=== PATIENT | male | born 1945 | race Caucasian/White ===

== ENCOUNTER 2016-06-20 16:28 | Inpatient (IN) ==
[2016-06-20 17:43] LABS: INR 1.1; Prothrombin Time 12.4 Seconds (9.4-12.1)
[2016-06-20 17:46] LABS: Activated Partial Thrombo Time 19.6 Seconds (26.0-36.0)
[2016-06-20 17:49] LABS: Alanine Aminotransferase 27 Units/L (0-55); Albumin 4.3 g/dL (3.5-5.0); Albumin/Globulin Ratio 1.5 (1.1-2.2); Alkaline Phosphatase 79 Units/L (38-126); Aspartate Amino Transferase 22 Units/L (5-34); BUN/Creatinine Ratio 13 (6-26); Bilirubin,Direct 0.2 mg/dL (0.0-0.5); Bilirubin,Indirect 0.5 mg/dL (0.0-1.2); Bilirubin,Total 0.7 mg/dL (0.2-1.2); Blood Urea Nitrogen 14 mg/dL (8-26); Carbon Dioxide 22 mEq/L (19-29); Chloride 102 mEq/L (98-109); Creatine Kinase 109 Units/L (30-200); Globulin 2.8 g/dL (2.4-3.5); Glucose 284 mg/dL (70-99); Osmolality,Calculated 297 (280-300); Potassium 3.6 mEq/L (3.5-4.5); Sodium 138 mEq/L (136-145); Total Protein 7.1 g/dL (6.0-8.3); eGFR For African Americans > 60 (> 60); eGFR For Non-African Americans > 60 (> 60)
[2016-06-20 20:18] LABS: Beta-Hydroxybutyric Acid 0.93 mmol/L (0.02-0.27)
[2016-06-20 20:27] LABS: Hematocrit 38.6 % (37.5-50.1); Hemoglobin 13.5 g/dL (12.9-16.9); Lymphocytes # 0.8 K/mcL (0.6-4.6); Mean Corpuscular Hemoglobin 28.5 pg (28.0-33.3); Mean Corpuscular Volume 81.6 fL (83.0-100.0); Mean Platelet Volume 10.9 fL (9.4-12.4); Monocytes # 0.1 K/mcL (0.0-1.3); Neutrophils # 0.9 K/mcL (1.6-8.9); Platelet Count 127 K/mcL (140-400); Red Blood Count 4.73 M/mcL (4.19-5.50); Red Cell Distribution Width 13.2 % (11.5-14.5)
[2016-06-20 20:27] LABS: Salicylate 7.2 mg/dL (15-30)
[2016-06-20 20:28] LABS: Acetaminophen < 1.0 mcg/mL (10-30)
[2016-06-20 20:47] LABS: Thyroid Stimulating Hormone 1.266 mcIU/mL (0.350-4.840)
[2016-06-20 20:48] LABS: C-Reactive Protein 0 mg/L (Less than 5)
[2016-06-20 20:50] LABS: Basophils # 0.1 K/mcL (0.0-0.2)
[2016-06-20 20:51] LABS: Platelet Estimate Slight Decrease (Normal); Reactive Lymphocytes Present (Not Present)
[2016-06-21 00:33] LABS: Amphetamine Screen,Urine Negative ng/mL (Cutoff=1000); Barbiturate Screen,Urine Negative ng/mL (Cutoff=200); Benzodiazepines Screen,Urine Negative ng/mL (Cutoff=200); Cannabinoid Screen,Urine Negative ng/mL (Cutoff = 50); Cocaine Screen,Urine Negative ng/mL (Cutoff= 300); Opiate Screen,Urine Negative ng/mL (Cutoff=300); Phencyclidine Screen,Urine Negative ng/mL (Cutoff=25)
[2016-06-21 02:10] LABS: 2009 H1N1 PCR NOT DETECTED (Not Detect); Influenza A PCR Negative (Negative); Influenza B PCR Negative (Negative)
[2016-06-21 06:36] LABS: Basophils % 0.9 %; Eosinophils # 0.1 K/mcL (0.0-0.6); Eosinophils % 2.2 %; Hemoglobin 13.3 g/dL (12.9-16.9); Immature Granulocytes % 0.4 % (0-4); Lymphocytes # 1.3 K/mcL (0.6-4.6); Mean Corpuscular HGB Conc 34.1 g/dL (31.6-35.5); Mean Corpuscular Hemoglobin 27.9 pg (28.0-33.3); Mean Corpuscular Volume 81.8 fL (83.0-100.0); Monocytes # 0.1 K/mcL (0.0-1.3); Monocytes % 6.1 %; Neutrophils # 0.8 K/mcL (1.6-8.9); Platelet Count 129 K/mcL (140-400); Red Blood Count 4.77 M/mcL (4.19-5.50); Red Cell Distribution Width 13.2 % (11.5-14.5); Segmented Neutrophils % 35.4 %
[2016-06-21 06:50] LABS: Alanine Aminotransferase 25 Units/L (0-55); Albumin 3.7 g/dL (3.5-5.0); Albumin/Globulin Ratio 1.5 (1.1-2.2); Alkaline Phosphatase 62 Units/L (38-126); Aspartate Amino Transferase 18 Units/L (5-34); BUN/Creatinine Ratio 11 (6-26); Bilirubin,Total 0.9 mg/dL (0.2-1.2); Blood Urea Nitrogen 10 mg/dL (8-26); Calcium 8.6 mg/dL (8.6-10.8); Carbon Dioxide 24 mEq/L (19-29); Chloride 103 mEq/L (98-109); Globulin 2.4 g/dL (2.4-3.5); Glucose 213 mg/dL (70-99); Magnesium 1.6 mg/dL (1.6-2.6); Osmolality,Calculated 291 (280-300); Potassium 3.3 mEq/L (3.5-4.5); Sodium 138 mEq/L (136-145); Total Protein 6.1 g/dL (6.0-8.3); eGFR For African Americans > 60 (> 60); eGFR For Non-African Americans > 60 (> 60)
[2016-06-22 06:11] LABS: Eosinophils # 0.1 K/mcL (0.0-0.6); Eosinophils % 3.4 %; Hematocrit 34.8 % (37.5-50.1); Hemoglobin 11.9 g/dL (12.9-16.9); Immature Granulocytes % 0.5 % (0-4); Lymphocytes % 47.5 %; Mean Corpuscular HGB Conc 34.2 g/dL (31.6-35.5); Mean Corpuscular Volume 81.9 fL (83.0-100.0); Mean Platelet Volume 11.4 fL (9.4-12.4); Monocytes # 0.1 K/mcL (0.0-1.3); Monocytes % 3.4 %; Neutrophils # 0.9 K/mcL (1.6-8.9); Platelet Count 114 K/mcL (140-400); Red Blood Count 4.25 M/mcL (4.19-5.50); Red Cell Distribution Width 13.2 % (11.5-14.5); Segmented Neutrophils % 44.2 %
[2016-06-22 06:26] LABS: BUN/Creatinine Ratio 14 (6-26); Blood Urea Nitrogen 12 mg/dL (8-26); Calcium 8.2 mg/dL (8.6-10.8); Carbon Dioxide 25 mEq/L (19-29); Chloride 108 mEq/L (98-109); Glucose 189 mg/dL (70-99); Osmolality,Calculated 289 (280-300); Sodium 137 mEq/L (136-145); eGFR For African Americans > 60 (> 60); eGFR For Non-African Americans > 60 (> 60)
[2016-06-22 11:34] LABS: Hemoglobin A1C 8.8 %
[2016-06-23 08:03] VITALS: BP 110/65
== END 2016-06-23 14:18 | disposition home health service (06) | DRG 190 ==
LOC: EMEROO 16:28 → 2NENU 16:28 → SUATTDRO 21:24 → 2NENU 22:40
PROVIDERS: ADMIT Internal Medicine; ATTEND Internal Medicine

== ENCOUNTER 2016-07-25 19:45 | Inpatient (IN) ==
[2016-07-25 20:37] LABS: Bilirubin,Urine Negative (Negative); Blood,Urine Small (Negative); Clarity,Urine Cloudy (Clear); Color,Urine Yellow (Yellow); Glucose,Urine (UA) >=1000 mg/dL (Normal); Ketones,Urine Negative (Negative); Leukocyte Esterase,Urine Moderate (Negative); Nitrite,Urine Negative (Negative); Protein,Urine Trace mg/dL (Neg-Trace); Specific Gravity,Urine > 1.030 (1.010-1.025); Urobilinogen,Urine Normal (Normal)
[2016-07-25 20:40] LABS: Bacteria,Urine None Seen per hpf (None-Few); Hyaline Casts,Urine None Seen per lpf (None-Few); Squamous Epithelial Cell,Urine Moderate per lpf (None-Few); WBC,Urine TNTC per hpf (0-3)
[2016-07-25] MEDS ORDERED: Insulin Human Regular 10 UNIT in 0.9 % Sodium Chloride 10 ML IV ONE (20:59)
--- NOTE | 2016-07-25 21:15 | Emergency Department Note ---
Disposition Clinical Impression: HHNC (hyperglycemic hyperosmolar nonketotic coma), Malaise and fatigue, Hyponatremia, Acute kidney injury UTI (urinary tract infection) Qualifiers: Urinary tract infection type: site unspecified Hematuria presence: with hematuria Qualified Code(s): N39.0 - Urinary tract infection, site not specified ; R31.9 - Hematuria, unspecified Disposition: Admitted As Inpatient Condition: Fair Referrals: NO,PCP [Non-Partnered Physician] - Forms: ED Satisfaction Letter Time of Disposition: 23:55 General Adult HPI - General Chief complaint: ED Neuro Symptoms/Deficit Stated complaint: hyperglycemia, slurred speech Time Seen by Provider: 07/25/16 20:24 Source: family Limitations: no limitations Nursing Notes Reviewed: Yes Vital Signs Reviewed: Yes - History of Present Illness HPI Narrative: 70-year-old male with past medical history for COPD,, 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 Patient undergone continued antibiotic therapy for UTI past 3-4 weeks presents with worsening fatigue and weakness over the past 2 weeks and has worsened over the past 3 days. Patient reports falling secondary to weakness. Onset (ago): week(s) Pain Scale: 7 Consistency: constant - Related Data Home Medications Medication Instructions Recorded Confirmed Albuterol Sulfate [Proventil] 4 mg PO BID 06/20/16 06/20/16 Insulin Lispro Protamin/Lispro 30 unit SQ BID 06/20/16 06/20/16 [Humalog Mix 75-25 Vial] Metformin HCl [Glucophage] 1,000 mg PO BID 06/20/16 06/20/16 Polyethylene Glycol 3350 [MiraLAX 1 scoop PO DAILY PRN 06/20/16 06/20/16 Powder Bulk 17.9 Oz] Simvastatin [Zocor] 40 mg PO HS 06/20/16 06/20/16 Tramadol HCl [Ultram] 50 mg PO Q4-6H PRN 06/20/16 06/20/16 Previous Rx's Medication Instructions Recorded Levofloxacin [Levaquin] 500 mg PO DAILY #5 tablet 06/23/16 Allergies Allergy/AdvReac Type Severity Reaction Status Date / Time loratadine [From Claritin] AdvReac Gastrointestinal Verified 06/20/16 16:46 Upset All systems ED: reviewed and negative except as stated. Constitutional: Reports: weakness. Denies: fever, chills ENT ED: Reports: congestion Cardiovascular: Reports: chest pain Respiratory: Reports: cough, dyspnea, wheezes Gastrointestinal: Reports: nausea. Denies: abdominal pain, vomiting, diarrhea Past Medical History - Past Medical History Attestation: Yes The following information was validated with the patient. Source: patient Medical history: Reports: COPD, CVA, diabetes, hyperlipidemia Surgical history: Reports: cholecystectomy, herniorrhaphy Psychiatric history: Reports: depression - Social History Smoking Status: Never smoker Smokeless Tobacco Status: No Alcohol use: Reports: none Drug use: Reports: none Physical Exam Vital Signs Temperature 99.2 F 07/25/16 19:51 Pulse Rate 92 07/25/16 19:51 Respiratory Rate 18 07/25/16 19:51 Blood Pressure 137/91 07/25/16 19:51 O2 Sat by Pulse Oximetry 95 07/25/16 19:51 Temperature 99.2 F 07/25/16 19:51 Pulse Rate 92 07/25/16 19:51 Respiratory Rate 18 07/25/16 19:51 Blood Pressure 137/91 07/25/16 19:51 O2 Sat by Pulse Oximetry 95 07/25/16 19:51 Oxygen Delivery Oxygen Delivery Room Air -General Appearance: Patient is a 70-year-old male who is alert and oriented 3 and GCS of 15's Jacques been to bed.. -Neurological exam: Patient has known left-sided weakness to right side of the body could offer and lower extremities secondary to prior CVA, no new deficits - Head Head exam: atraumatic, normocephalic, normal inspection - Eye Eye exam: Present: normal appearance, PERRL, EOMI, negative for scleral icterus negative for conjunctival pallor - ENT ENT exam: normal exam, normal oropharynx, mucous membranes moist - Neck Neck exam: Present: normal inspection, full ROM, trachea midline, negative JVD - Chest Chest inspection: Present: Patient has bilateral equal rise and fall of chest wall. Non-tender to palpation. - Respiratory Respiratory exam: Lungs sounds clear to auscultation bilaterally Cardiovascular Cardiovascular exam: Present: regular rate, normal rhythm, normal heart sounds, without murmurs rubs or gallops. - Abdominal Exam Abdominal exam: Round nondistended, generalized tenderness to palpation. - Extremities Exam Extremities exam: Present: normal inspection, full ROM, pulses equal bilaterally upper and lower extremities - Psychiatric Psychiatric exam: Present: normal affect, normal mood - Skin Skin exam: Present: warm, dry, intact, normal color - General Limitations: no limitations General appearance: alert Course - Reevaluation(s) Reevaluation #1: His condition concerning for presyncope secondary to possible DKA/HHS, pyelonephritis, CHF, CVA Plan: CBC, BMP, lactate, beta hydroxybutyric acid, Lactic acid, troponin, chest x-ray, EKG and blood cultures Time: 20:59 Reevaluation #2: IVs and labs in progress Time: 22:41 Reevaluation #3: Patient's glucose is 524 concerning for a GCS with the absence of elevated hydroxybutyrate. Acid or elevated lactic acid or an opening of the anion gap. Patient does have an acute kidney injury with a creatinine of 1.4 degrees well. Patient started on IV hydration and antibiotic therapy to cover for systemic infection. Patient is accepted for admission by Dr. Edwards Vital Signs Temperature 99.2 F 07/25/16 19:51 Pulse Rate 92 07/25/16 19:51 Respiratory Rate 18 07/25/16 19:51 Blood Pressure 137/91 07/25/16 19:51 O2 Sat by Pulse Oximetry 95 07/25/16 19:51 Temperature 99.2 F 07/25/16 19:51 Pulse Rate 92 07/25/16 19:51 Respiratory Rate 18 07/25/16 19:51 Blood Pressure 137/91 07/25/16 19:51 O2 Sat by Pulse Oximetry 95 07/25/16 19:51 Oxygen Delivery Oxygen Delivery Room Air Medical Decision Making - Lab Data Lab Results 07/25/16 Range/Units 20:11 Urine Color Yellow (Yellow) Urine Clarity Cloudy A (Clear) Urine pH 7.0 (5.0-8.0) pH Units Ur Specific [place] > 1.030 H (1.010-1.025) Urine Protein Trace (Neg-Trace) mg/dL Urine Glucose (UA) >=1000 H (Normal) mg/dL Urine Ketones Negative (Negative) mg/dL Urine Blood Small H (Negative) Urine Nitrite Negative (Negative) Urine Bilirubin Negative (Negative) Urine Urobilinogen Normal (Normal) mg/dL Ur Leukocyte Esterase Moderate H (Negative) Urine Microscopic RBC 5-15 H (0-3) per hpf Urine Microscopic WBC TNTC H (0-3) per hpf Ur Squamous Epith Cells Moderate H (None-Few) per lpf Urine Bacteria None Seen (None-Few) per hpf Hyaline Casts None Seen (None-Few) per lpf Urine Yeast Test Not Performed Ur Culture Indicated? YES A (NO)
[2016-07-25 21:32] LABS: Basophils # 0.1 K/mcL (0.0-0.2); Basophils % 1.4 %; Eosinophils # 0.1 K/mcL (0.0-0.6); Eosinophils % 3.6 %; Hematocrit 41.1 % (37.5-50.1); Hemoglobin 14.7 g/dL (12.9-16.9); Immature Granulocytes % 0.6 % (0-4); Lymphocytes # 1.1 K/mcL (0.6-4.6); Lymphocytes % 30.1 %; Mean Corpuscular HGB Conc 35.8 g/dL (31.6-35.5); Mean Corpuscular Hemoglobin 28.9 pg (28.0-33.3); Mean Corpuscular Volume 80.9 fL (83.0-100.0); Mean Platelet Volume 11.3 fL (9.4-12.4); Monocytes # 0.1 K/mcL (0.0-1.3); Monocytes % 3.3 %; Neutrophils # 2.2 K/mcL (1.6-8.9); Platelet Count 149 K/mcL (140-400); Red Blood Count 5.08 M/mcL (4.19-5.50)
--- NOTE | 2016-07-25 21:37 | Emergency Department Note ---
START Narrative - START START: I, Rowdy Costa, examined this patient and my medical decision-making was reviewed with the DIRECTOR OF SOCIAL MEDIA MARKETING/PA/Advanced Practice Nurse/Resident Physician. I agree with the documented findings, disposition and treatment plan as described except to the extent set forth below. 70-year-old male presents with concerns of hyperglycemia. Director Of Social Media Marketing states the patient has been treated for urinary tract infection over the past 2 weeks, taking levofloxacin at home. Patient states that he has back pain similar to when he had urinary tract infections in the past. Patient was incontinent of urine in the emergency department during initial evaluation. Patient states that he has had dysuria and increased frequency of urination. He has had multiple urinary tract infections with similar symptoms. Patient's blood sugar was greater than 600 at home. He took 30 units of insulin prior to arrival to the emergency department. Patient slid out of bed earlier this morning but denies hitting his head or having other trauma. Director Of Social Media Marketing states that the patient has an increased slurred speech today. He reports the patient has baseline slurred speech secondary to a CVA and that he does tend to have worsened speech when he becomes sick. She has a urinary tract infection with urinalysis.
[2016-07-25 21:40] LABS: INR 0.9
[2016-07-25 21:42] LABS: Potassium 3.7 mEq/L (3.5-4.5)
[2016-07-25] MEDS ORDERED: Piperacillin/Tazobactam 3.375 GM in D5% in Water (Mini-Bag+) 100 ML IVPB ONE (21:52)
[2016-07-25] MEDS ORDERED: Insulin LISPRO 300 UNITS/3 ML VIAL SQ ONE (22:45)
[2016-07-25] MEDS ORDERED: Insulin Regular, Human 100 UNIT/ML SQ ONE (23:00)
[2016-07-25] MEDS ORDERED: *HR* HYDROmorphone 2 MG/ML SYRINGE IV ONE (23:44)
[2016-07-26] MEDS: 0.9 % Sodium Chloride 1,000 ML IVC SCH ×7 (00:17→17:13)
--- NOTE | 2016-07-26 03:08 | Internal Med History&Physical ---
Date of Encounter: 07/26/16 Time of Encounter: 03:06 Assessment and Plan (1) UTI (urinary tract infection) Current visit: Yes Status: Acute Patient with a urinary tract infection which failed outpatient therapy with quinolones. Continue with Zosyn, reassess with cultures. Patient with leukopenia (which has been present in the past) and acute kidney injury secondary to infection. He has been tachycardic at some point, however his blood pressure has been stable. Follow lactic acid, continue with IV fluids. Monitor input and output. Qualifiers: Urinary tract infection type: site unspecified Hematuria presence: with hematuria Qualified Code(s): N39.0 - Urinary tract infection, site not specified; R31.9 - Hematuria, unspecified (2) Acute kidney injury Current visit: Yes Status: Acute Continue with IV fluid therapy. Anion gap 15. Lactic acid 2.2. (3) Diabetes Current visit: No Status: Chronic Uncontrolled diabetes with hyperglycemia. Anion gap 15. Continue with IV fluids. Insulin therapy. Check A1c. Accu-Cheks. 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 Continue with IV antibiotics. Qualifiers: Leukopenia type: unspecified Qualified Code(s): D72.819 - Decreased white blood cell count, unspecified (5) Cerebrovascular disease Current visit: No Status: Chronic Resume home meds. (6) DVT prophylaxis Current visit: No Status: Acute Heparin sq. Internal Medicine - H&P: HPI Chief complaint: Weakness Admitted From: Emergency Dept Plans for Post Hospital Care: Home History of present illness: Mr. Correa is a 71 year old male with a medical history of CVA, hypertension, UTI. Patient presented to our emergency department due to progressive weakness , he has been taking therapy for a UTI with levofloxacin. Patient denies fever , chest pain, he complains of cough and some shortness of breath, however he admits to history of COPD although he is not a smoker. Patient denies loss of consciousness, syncope, skin rash, diarrhea. He was found to have a glucose level over 500 and an abnormal urinalysis with too numerous to count leukocytes in the urine. The patient was admitted for further management and workup of his UTI. He was given a dose of Zosyn in the emergency department. Today is his birthday. Past Med Surg Social Fam HX - Past Medical History Medical history: COPD, CVA, diabetes, hyperlipidemia Psychiatric history: depression - Past Surgical History Surgical History: cholecystectomy, herniorrhaphy, other - Social History Smoking Status: Never smoker Smokeless Tobacco Status: No Alcohol use: none Drug use: none - Family History Mother Living Status: Hx Family Cancer: Yes (lung cANCER) Internal Medicine - H&P: Meds Albuterol Sulfate [Proventil] 4 mg PO BID 06/20/16 [History] Insulin Lispro Protamin/Lispro [Humalog Mix 75-25 Vial] 30 unit SQ BID 06/20/16 [History] Metformin HCl [Glucophage] 1,000 mg PO BID 06/20/16 [History] Polyethylene Glycol 3350 [MiraLAX Powder Bulk 17.9 Oz] 1 scoop PO DAILY PRN [History] Simvastatin [Zocor] 40 mg PO HS 06/20/16 [History] Tramadol HCl [Ultram] 50 mg PO Q4-6H PRN 06/20/16 [History] Levofloxacin [Levaquin] 500 mg PO DAILY #5 tablet 06/23/16 [Rx] Allergies loratadine [From Claritin] Adverse Reaction (Verified 06/20/16 16:46) Gastrointestinal Upset All Systems PM: A 10-system review of systems was performed and is negative for pertinent findings except as documented above in the HPI. - Constitutional Constitutional: as per HPI, anorexia, fatigue, lethargy - EENT Eyes: as per HPI Ears: as per HPI Nose, mouth and throat: as per HPI - Breasts Breasts: as per HPI - Cardiovascular Cardiovascular ROS IM: as per HPI - Respiratory Respiratory: as per HPI, dyspnea on exertion - Gastrointestinal Gastrointestinal: as per HPI - Genitourinary Genitourinary ROS male: as per HPI - Musculoskeletal Musculoskeletal ROS IM: as per HPI - Integumentary Integumentary IM: as per HPI - Neurological Neurological ROS: as per HPI - Psychiatric Psychiatric: as per HPI - Endocrine Endocrine IM: as per HPI - Hematologic/Lymphatic Hematologic/Lymphatic: as per HPI - Allergic/Immunologic Allergic/Immunologic: as per HPI - Constitutional Vitals: Temp Pulse Resp BP Pulse Ox 98.1 F 96 14 119/79 95 07/26/16 01:31 07/26/16 01:31 07/26/16 01:31 07/26/16 01:31 07/26/16 02:09 General appearance: Present: cooperative, A&O X 3, pleasant, no acute distress Exam: Right-sided hemiparesis. - Head Head exam: Present: atraumatic, normocephalic - Eye Eye exam: Present: PERRL, conjuntiva pink, sclera anicteric Pupils: Present: PERRL - Neck Neck exam general surgery: Present: supple, trachea midline. Absent: lymphadenopathy - Respiratory Respiratory exam: Present: CTAB. Absent: accessory muscle use, rales, rhonchi, wheezes - Cardiovascular Cardiovascular exam: Present: RRR, +S1, +S2. Absent: diastolic murmur, gallop, rubs, systolic murmur - GI/Abdominal GI/Abdominal exam: Present: normal bowel sounds, soft, no peritoneal signs. Absent: distended, tenderness - Extremities Exam Extremities exam: Present: warm, radial pulses palpable and symetrical. Absent : calf tenderness, cyanotic, pedal edema - Neurological Exam Neurological exam: Present: CN II-XII intact, oriented X3, no focal deficits. Absent: pronater drift, facial droop, speech deficit - Skin Skin exam: Present: dry, intact Internal Med - H&P Results - Labs CBC & Chem 7: 07/25/16 21:21 07/25/16 21:21
[2016-07-26] MEDS ORDERED: Naloxone 0.4 MG/ML INJ IVP PRN (03:19)
[2016-07-26] MEDS ORDERED: *HR* Dextrose 50 % in Water (Syg) 50 ML SYRINGE IVP PRN (03:19)
[2016-07-26] MEDS ORDERED: D5% in Water 1,000 ML IVC PRN (03:19)
[2016-07-26] MEDS ORDERED: *HR* Morphine 2 MG/ML SYRINGE IVP PRN (03:19)
[2016-07-26] MEDS ORDERED: Dextrose Gel 15 GM PO PRN ×2 (03:19)
[2016-07-26] MEDS ORDERED: Acetaminophen 325 MG TABLET PO PRN (03:19)
[2016-07-26] MEDS ORDERED: Ondansetron 4 MG/2 ML VIAL IVP PRN ×2 (03:19→17:23)
[2016-07-26 05:06] LABS: Basophils % 0.9 %; Eosinophils # 0.2 K/mcL (0.0-0.6); Eosinophils % 4.1 %; Hematocrit 34.7 % (37.5-50.1); Lymphocytes # 1.4 K/mcL (0.6-4.6); Lymphocytes % 32.6 %; Mean Corpuscular HGB Conc 36.6 g/dL (31.6-35.5); Mean Corpuscular Hemoglobin 30.1 pg (28.0-33.3); Mean Corpuscular Volume 82.2 fL (83.0-100.0); Mean Platelet Volume 11.4 fL (9.4-12.4); Monocytes # 0.2 K/mcL (0.0-1.3); Monocytes % 4.1 %; Neutrophils # 2.6 K/mcL (1.6-8.9); Platelet Count 121 K/mcL (140-400); Red Blood Count 4.22 M/mcL (4.19-5.50); Red Cell Distribution Width 13.1 % (11.5-14.5); Segmented Neutrophils % 58.3 %
[2016-07-26 05:09] LABS: Hemoglobin 12.7 g/dL (12.9-16.9)
[2016-07-26] MEDS: *HR* Heparin 5,000 UNIT/ML VIAL SQ SCH ×2 (05:16→17:14)
[2016-07-26] MEDS: *HR* HYDROcodone/Acet 5/325 mg TABLET PO PRN ×2 (05:17→17:10)
[2016-07-26] MEDS: Famotidine 20 MG/2 ML VIAL IVP SCH ×2 (05:17→17:14)
[2016-07-26 05:22] LABS: Hemoglobin A1C 11.3 %
[2016-07-26 05:23] LABS: Alanine Aminotransferase 19 Units/L (0-55); Albumin 3.6 g/dL (3.5-5.0); Albumin/Globulin Ratio 1.6 (1.1-2.2); Alkaline Phosphatase 88 Units/L (38-126); Aspartate Amino Transferase 12 Units/L (5-34); BUN/Creatinine Ratio 10 (6-26); Bilirubin,Total 0.5 mg/dL (0.2-1.2); Blood Urea Nitrogen 12 mg/dL (8-26); Calcium 8.7 mg/dL (8.6-10.8); Carbon Dioxide 25 mEq/L (19-29); Chloride 98 mEq/L (98-109); Chol/HDL Ratio 3.9 (0-4.9); Cholesterol 151 mg/dL (< 200); Globulin 2.2 g/dL (2.4-3.5); Glucose 418 mg/dL (70-99); HDL Cholesterol 39 mg/dL (40-59); LDL Cholesterol,Calculated 73 mg/dL (0-99); Magnesium 1.6 mg/dL (1.6-2.6); Osmolality,Calculated 300 (280-300); Potassium 3.1 mEq/L (3.5-4.5); Sodium 136 mEq/L (136-145); Total Protein 5.8 g/dL (6.0-8.3); Triglycerides 197 mg/dL (< 150); eGFR For African Americans > 60 (> 60); eGFR For Non-African Americans 59 (> 60)
[2016-07-26] MEDS ORDERED: *HR* OxyCODONE/APAP 10/325 TABLET PO ONE (06:59)
[2016-07-26] MEDS: Insulin LISPRO 300 UNITS/3 ML VIAL SQ SCH ×4 (08:05→22:23)
[2016-07-26] MEDS: Piperacillin/Tazobactam 3.375 GM in D5% in Water (Mini-Bag+) 100 ML IVPB SCH ×3 (08:06→23:55)
--- NOTE | 2016-07-26 09:11 | Electrocardiograph Report ---
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
[2016-07-26] MEDS ORDERED: traMADol 50 MG TABLET PO PRN (17:18)
--- NOTE | 2016-07-26 17:22 | Event Note ---
Date of Encounter: 07/26/16 Time of Encounter: 10:30 Patient seen and examined. On examination, patient initially asleep and awaken easily to voice. He complains of pain in his back that is consistent with his chronic pain however he states the pain is slightly different from his normal. He states his weakness has improved. He states he is eating well. He states he is angry because his "Perc tens" have not been continued. His OARRS report checks out with one prescriber with current prescriptions for Percocet 10 mg, 5 per day and tramadol 50 mg 6 per day. We will continue these. Urinary tract infection noted. Patient failed outpatient therapy with levofloxacin. Continue Zosyn. Urine culture pending. Acute kidney injury resolved. No lactic acidosis noted. Hypokalemia noted, will replete and recheck tomorrow. His diabetes is not controlled with an A1c of 11.3%, continue sliding scale while admitted. OT and PT consultations are pending. Nutrition also on board. Chest x-ray unremarkable. Sliding scale increased. ITS Impressions Chest X-Ray 07/25/16 20:13 IMPRESSION: No acute cardiopulmonary disease. Unchanged right paratracheal mass, likely a bronchogenic cyst. D/ / Jax Abrams MD / Jax Abrams MD Interpreting Provider: Jax Abrams MD
[2016-07-26] MEDS: Insulin DETEMIR 100 UNIT/ML X5UNITS SQ SCH (20:03)
[2016-07-26] MEDS ORDERED: Insulin LISPRO 300 UNITS/3 ML VIAL SQ SCH (21:00)
[2016-07-27 04:50] LABS: Hematocrit 36.6 % (37.5-50.1); Hemoglobin 12.9 g/dL (12.9-16.9); Mean Corpuscular HGB Conc 35.2 g/dL (31.6-35.5); Mean Corpuscular Hemoglobin 29.1 pg (28.0-33.3); Mean Corpuscular Volume 82.4 fL (83.0-100.0); Neutrophils # 1.6 K/mcL (1.6-8.9); Platelet Count 103 K/mcL (140-400); Red Blood Count 4.44 M/mcL (4.19-5.50); Red Cell Distribution Width 13.2 % (11.5-14.5)
[2016-07-27 05:02] LABS: BUN/Creatinine Ratio 11 (6-26); Blood Urea Nitrogen 15 mg/dL (8-26); Calcium 8.5 mg/dL (8.6-10.8); Carbon Dioxide 21 mEq/L (19-29); Chloride 103 mEq/L (98-109); Glucose 274 mg/dL (70-99); Osmolality,Calculated 295 (280-300); Potassium 3.9 mEq/L (3.5-4.5); Sodium 137 mEq/L (136-145); eGFR For African Americans > 60 (> 60); eGFR For Non-African Americans 50 (> 60)
[2016-07-27 05:34] LABS: Eosinophils # 0.3 K/mcL (0.0-0.6); Monocytes # 0.2 K/mcL (0.0-1.3); Platelet Estimate Slight Decrease (Normal)
[2016-07-27] MEDS: Famotidine 20 MG/2 ML VIAL IVP SCH ×2 (06:21→16:59)
[2016-07-27] MEDS: *HR* Heparin 5,000 UNIT/ML VIAL SQ SCH ×2 (06:21→17:01)
[2016-07-27] MEDS: *HR* OxyCODONE/APAP 10/325 TABLET PO PRN ×3 (07:57→20:44)
[2016-07-27] MEDS: Insulin LISPRO 300 UNITS/3 ML VIAL SQ SCH ×4 (07:58→20:44)
[2016-07-27] MEDS: Piperacillin/Tazobactam 3.375 GM in D5% in Water (Mini-Bag+) 100 ML IVPB SCH ×2 (07:59→17:00)
[2016-07-27 10:53] LABS: Bilirubin,Urine Negative (Negative); Blood,Urine Large (Negative); Clarity,Urine Turbid (Clear); Color,Urine Yellow (Yellow); Glucose,Urine (UA) >=1000 mg/dL (Normal); Ketones,Urine Negative (Negative); Leukocyte Esterase,Urine Large (Negative); Nitrite,Urine Negative (Negative); PH,Urine 5.5 pH Units (5.0-8.0); Protein,Urine 100 mg/dL (Neg-Trace); Specific Gravity,Urine 1.024 (1.010-1.025); Urobilinogen,Urine Normal (Normal)
[2016-07-27 10:54] LABS: Bacteria,Urine None Seen per hpf (None-Few); Squamous Epithelial Cell,Urine Many per lpf (None-Few); WBC,Urine TNTC per hpf (0-3)
[2016-07-27 10:55] LABS: Hyaline Casts,Urine None Seen per lpf (None-Few)
--- NOTE | 2016-07-27 16:11 | Internal Med Progress Note ---
Date of Encounter: 07/27/16 Time of Encounter: 09:30 - Assessment and plan (1) UTI (urinary tract infection) Current Visit: Yes Status: Acute Assessment and plan: Urine culture mixed and unable to be interpreted. Given that he failed outpatient therapy with Levaquin, we will repeat a urinalysis and repeat the urine culture. He is tolerating Zosyn well. We will hopefully have a preliminary culture back tomorrow. Likely discharge once his urine culture has been resulted. Vital signs are stable. Patient does not meet criteria for SIRS or sepsis. Mild acute kidney injury, we will add gentle IV fluids. 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 When asked if he would be amenable to home health, patient stating that he has been trying to get home health for the past 6 months. He states several different reasons as to why he cannot have home health services. Some of his reasoning was difficult to follow. He mentioned that he has had issues before with there being 4 dogs inside the house and with fecal matter on the floor. He also stated issues with being discharged honorably discharged from the service. He also states issues with the dogs in the house though he states he keeps them locked in a back room where they "due to her business." In review of his chart, he and his are recently admitted and there was an attempt to place both of them that an ECF but it appears as if they have refused. It was noted that his was sitting in her fecal matter and was very unkempt. business services analyst has been brought on board. OT and PT recommended home health so we will need to investigate the issues preventing him and his from having services at home. Urine culture was mixed and as he failed outpatient therapy for his urinary tract infection, we are repeating a urinalysis so he would not be fit to go home today anyways. (3) Hypokalemia Current Visit: Yes Status: Resolved (4) Uncontrolled diabetes mellitus Current Visit: Yes Status: Chronic Assessment and plan: Uncontrolled with an A1c of 11.3%. Continue sliding scale while admitted. Qualifiers: Diabetes mellitus type: type 2 Diabetes mellitus complication status: with hyperglycemia Diabetes mellitus skilled nursing insulin use: with skilled nursing use Qualified Code(s): E11.65 - Type 2 diabetes mellitus with hyperglycemia; Z79.4 - watermaster (current) use of insulin (5) Hypertension Current Visit: Yes Status: Chronic Assessment and plan: Controlled. Patient is not listed as being on any antihypertensive medications at home, will monitor. (6) CVA, old, hemiparesis Current Visit: Yes Status: Chronic Assessment and plan: Remote CVA with right-sided weakness. No new focal neurological weaknesses. (7) Leukopenia Current Visit: No Status: Chronic Assessment and plan: Acute on chronic over the past several years. Likely secondary to infection, we will continue to trend. Qualifiers: Leukopenia type: unspecified Qualified Code(s): D72.819 - Decreased white blood cell count, unspecified (8) Thrombocytopenia Current Visit: No Status: Acute Assessment and plan: Also acute on chronic at times. No signs of active bleeding, we will trend (9) DVT prophylaxis Current Visit: No Status: Acute Assessment and plan: Subcutaneous heparin (10) Hyponatremia Current Visit: Yes Status: Resolved (11) Acute kidney injury Current Visit: Yes Status: Acute Assessment and plan: Mild, will trend. Patient endorsing a normal appetite. - Time Spent With Patient Greater than 35 minutes (discussion home env't) - Subjective Interval history: Patient seen and examined. On examination, patient sitting upright in his chair watching television. He states that he is feeling better and denies pain at this time. He denies weakness or shortness of breath. He states that his is at home and is "handicapped and disabled" and states that he is anxious to return home. - Constitutional Vitals: Temp Pulse Resp BP Pulse Ox 98.7 F 76 16 127/76 93 07/27/16 14:38 07/27/16 14:38 07/27/16 14:38 07/27/16 14:38 07/27/16 14:38 General appearance: Present: cooperative, A&O X 3, pleasant, no acute distress, answers questions appropriately - Head Head exam: Present: atraumatic, normocephalic - Eye Eye exam: Present: PERRL, conjuntiva pink, sclera anicteric Pupils: Present: PERRL - Neck Neck exam general surgery: Present: supple, trachea midline. Absent: lymphadenopathy - Respiratory Respiratory exam: Present: CTAB. Absent: accessory muscle use, rales, respiratory distress, rhonchi, wheezes - Cardiovascular Cardiovascular exam: Present: RRR, +S1, +S2. Absent: diastolic murmur, gallop, rubs, systolic murmur - GI/Abdominal GI/Abdominal exam: Present: normal bowel sounds, soft, no peritoneal signs. Absent: distended, tenderness - Extremities Exam Extremities exam: Present: warm, radial pulses palpable and symetrical. Absent : calf tenderness, cyanotic, pedal edema - Neurological Exam Neurological exam: Present: alert, CN II-XII intact, oriented X3, no focal deficits, pronater drift (chronic), facial droop (chornic), speech deficit ( chronic). Absent: strengths equal and symetr throughout (chronic) - Expanded Neurological Exam Neurological exam expanded: Present: protecting the airway Patient oriented to: Present: person, place, time Speech: Present: garbled (at times but intelligible) Neuro motor strength exam: LUE: 5, RUE: 4, LLE: 5, RLE: 4 Coma Scale Eye Opening: Spontaneous Coma Scale Motor Response: Obeys Commands Coma Scale Verbal Response: Oriented Coma Scale Total: 15 - Skin Skin exam: Present: dry, intact, normal color, warm Internal Medicine: Result - Labs CBC & Chem 7: 07/27/16 04:24 07/27/16 04:24 Labs: Short CBC 07/27/16 Range/Units 04:24 WBC 3.0 L (4.3-11.1) K/mcL Hgb 12.9 (12.9-16.9) g/dL Hct 36.6 L (37.5-50.1) % Plt Count 103 L (140-400) K/mcL Neutrophils # 1.6 (1.6-8.9) K/mcL BMP 07/27/16 04:24 Sodium 137 Potassium 3.9 Chloride 103 Carbon Dioxide 21 BUN 15 Creatinine 1.40 H Glucose 274 H Calcium 8.5 L Urine 07/27/16 Range/Units 10:43 Urine Color Yellow (Yellow) Urine Clarity Turbid A (Clear) Urine pH 5.5 (5.0-8.0) pH Units Ur Specific [place] 1.024 (1.010-1.025) Urine Protein 100 H (Neg-Trace) mg/dL Urine Glucose (UA) >=1000 H (Normal) mg/dL - ABG Interpretation ABG results: PT/INR, D-dimer PT 10.0 Seconds (9.4-12.1) 07/25/16 21:21 Consult Discharge Plan - Plan Referrals: Rey Matson DO [Primary Care Provider] - 08/03/16 2:15 pm
[2016-07-27] MEDS: 0.9 % Sodium Chloride 1,000 ML IVC SCH (17:01)
[2016-07-27] MEDS: Insulin DETEMIR 100 UNIT/ML X5UNITS SQ SCH (20:45)
[2016-07-28] MEDS: Piperacillin/Tazobactam 3.375 GM in D5% in Water (Mini-Bag+) 100 ML IVPB SCH ×4 (00:44→23:54)
[2016-07-28] MEDS: *HR* OxyCODONE/APAP 10/325 TABLET PO PRN ×3 (03:07→20:05)
[2016-07-28 05:48] LABS: Basophils % 1.2 %; Eosinophils # 0.2 K/mcL (0.0-0.6); Eosinophils % 6.9 %; Hematocrit 35.7 % (37.5-50.1); Hemoglobin 12.6 g/dL (12.9-16.9); Immature Granulocytes % 0.4 % (0-4); Lymphocytes # 1.1 K/mcL (0.6-4.6); Lymphocytes % 43.7 %; Mean Corpuscular HGB Conc 35.3 g/dL (31.6-35.5); Mean Corpuscular Hemoglobin 29.4 pg (28.0-33.3); Mean Corpuscular Volume 83.2 fL (83.0-100.0); Monocytes # 0.1 K/mcL (0.0-1.3); Monocytes % 4.9 %; Neutrophils # 1.1 K/mcL (1.6-8.9); Platelet Count 119 K/mcL (140-400); Red Blood Count 4.29 M/mcL (4.19-5.50); Red Cell Distribution Width 13.5 % (11.5-14.5); Segmented Neutrophils % 42.9 %
[2016-07-28 06:08] LABS: BUN/Creatinine Ratio 14 (6-26); Blood Urea Nitrogen 16 mg/dL (8-26); Calcium 8.4 mg/dL (8.6-10.8); Carbon Dioxide 23 mEq/L (19-29); Chloride 104 mEq/L (98-109); Glucose 332 mg/dL (70-99); Osmolality,Calculated 300 (280-300); Potassium 3.6 mEq/L (3.5-4.5); Sodium 138 mEq/L (136-145); eGFR For African Americans > 60 (> 60); eGFR For Non-African Americans > 60 (> 60)
[2016-07-28] MEDS: *HR* Heparin 5,000 UNIT/ML VIAL SQ SCH ×2 (06:27→17:56)
[2016-07-28] MEDS: Famotidine 20 MG/2 ML VIAL IVP SCH ×2 (06:28→17:47)
[2016-07-28] MEDS: Insulin LISPRO 300 UNITS/3 ML VIAL SQ SCH ×4 (08:35→21:24)
[2016-07-28] MEDS: 0.9 % Sodium Chloride 1,000 ML IVC SCH (12:45)
--- NOTE | 2016-07-28 19:42 | Internal Med Progress Note ---
Date of Encounter: 07/28/16 Time of Encounter: 18:15 - Assessment and plan (1) UTI (urinary tract infection) Current Visit: Yes Status: Acute Assessment and plan: Initial Urine culture mixed and unable to be interpreted. Given that he failed outpatient therapy with Levaquin, repeat urinalysis and repeat urine culture were obtained. Repeat urine culture consistent with yeast which is most likely a contamination. Spoke to infectious disease recommends changing the patient over to Augmentin and completing a 14 day course. Vital signs are stable. Patient does not meet criteria for SIRS or sepsis. Mild acute kidney injury resolved and the patient appears to be eating well, we will discontinue fluids. Qualifiers: Urinary tract infection type: site unspecified Hematuria presence: with hematuria Qualified Code(s): N39.0 - Urinary tract infection, site not specified; R31.9 - Hematuria, unspecified (2) Impaired home maintenance management Current Visit: Yes Status: Acute Assessment and plan: Social workers on board. APS visited the patient's home yesterday we have not yet heard back from her regarding her recommendations. Patient is amenable to home health services. [facility], [facility] and in home health have refused this patient for prior instances. [facility] may be accepting this patient if his primary care provider is able to sign off. If there are no issues with APS, possibly discharge tomorrow but unsafe to discharge at this time until we hear back from APS and until we hear whether or not [facility]. 07/27/16 In speaking with the patient, he states that he cannot go to an ECF stating that his is "handicapped and disabled" and that he takes care of her. When asked if he would be amenable to home health, patient stating that he has been trying to get home health for the past 6 months. He states several different reasons as to why he cannot have home health services. Some of his reasoning was difficult to follow. He mentioned that he has had issues before with there being 4 dogs inside the house and with fecal matter on the floor. He also stated issues with being discharged honorably discharged from the service. He also states issues with the dogs in the house though he states he keeps them locked in a back room where they "due to her business." In review of his chart, he and his are recently admitted and there was an attempt to place both of them that an ECF but it appears as if they have refused. It was noted that his was sitting in her fecal matter and was very unkempt. clinical services professional has been brought on board. OT and PT recommended home health so we will need to investigate the issues preventing him and his from having services at home. Urine culture was mixed and as he failed outpatient therapy for his urinary tract infection, we are repeating a urinalysis so he would not be fit to go home today anyways. (3) Hypokalemia Current Visit: Yes Status: Resolved (4) Uncontrolled diabetes mellitus Current Visit: Yes Status: Chronic Assessment and plan: Uncontrolled with an A1c of 11.3%. Continue sliding scale while admitted. Patient has a lengthy history of noncompliance. We will continue to educate him. 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 Will initiate lisinopril and monitor (6) CVA, old, hemiparesis Current Visit: Yes Status: Chronic Assessment and plan: Remote CVA with right-sided weakness. No new focal neurological weaknesses. (7) Leukopenia Current Visit: No Status: Chronic Assessment and plan: Acute on chronic over the past several years. Likely secondary to infection, we will continue to trend. Qualifiers: Leukopenia type: unspecified Qualified Code(s): D72.819 - Decreased white blood cell count, unspecified (8) Thrombocytopenia Current Visit: No Status: Acute Assessment and plan: Also acute on chronic at times. No signs of active bleeding, we will trend (9) DVT prophylaxis Current Visit: No Status: Acute Assessment and plan: Subcutaneous heparin (10) Hyponatremia Current Visit: Yes Status: Resolved (11) Acute kidney injury Current Visit: Yes Status: Resolved - Subjective Interval history: Patient seen and examined in concert with psychotherapist social worker. On examination, patient is sitting upright in bed. He states he continues to feel better and is requesting to go home. The patient, psychotherapist social worker, and myself had a lengthy discussion regarding his disposition which is yet to be determined. Patient's questions were answered to the best of our ability, awaiting APS decision. - Constitutional Vitals: Temp Pulse Resp BP Pulse Ox 98.4 F 97 18 156/85 97 07/28/16 18:55 07/28/16 18:55 07/28/16 18:55 07/28/16 18:55 07/28/16 18:55 General appearance: Present: cooperative, disheveled, A&O X 3, no acute distress , answers questions appropriately - Head Head exam: Present: atraumatic, normocephalic - Eye Eye exam: Present: PERRL, conjuntiva pink, sclera anicteric Pupils: Present: PERRL - Neck Neck exam general surgery: Present: supple, trachea midline. Absent: lymphadenopathy - Respiratory Respiratory exam: Present: decreased breath sounds. Absent: accessory muscle use, rales, respiratory distress, rhonchi, wheezes - Cardiovascular Cardiovascular exam: Present: RRR, +S1, +S2. Absent: diastolic murmur, gallop, rubs, systolic murmur - GI/Abdominal GI/Abdominal exam: Present: normal bowel sounds, soft, no peritoneal signs. Absent: distended, tenderness - Extremities Exam Extremities exam: Present: warm, radial pulses palpable and symetrical. Absent : calf tenderness, cyanotic, pedal edema - Neurological Exam Neurological exam: Present: alert, CN II-XII intact, oriented X3, no focal deficits, pronater drift (Chronic), facial droop, speech deficit (Chronic). Absent: strengths equal and symetr throughout (Chronic) - Skin Skin exam: Present: dry, intact, normal color, warm Internal Medicine: Result - Labs CBC & Chem 7: 07/28/16 04:57 07/28/16 04:57 Labs: Short CBC 07/28/16 Range/Units 04:57 WBC 2.5 L (4.3-11.1) K/mcL Hgb 12.6 L (12.9-16.9) g/dL Hct 35.7 L (37.5-50.1) % Plt Count 119 L (140-400) K/mcL Neutrophils # 1.1 L (1.6-8.9) K/mcL BMP 07/28/16 04:57 Sodium 138 Potassium 3.6 Chloride 104 Carbon Dioxide 23 BUN 16 Creatinine 1.17 Glucose 332 H Calcium 8.4 L - ABG Interpretation ABG results: PT/INR, D-dimer PT 10.0 Seconds (9.4-12.1) 07/25/16 21:21 Consult Discharge Plan - Plan Referrals: Rey Matosn DO [Primary Care Provider] - 08/03/16 2:15 pm
[2016-07-28] MEDS ORDERED: Insulin DETEMIR 100 UNIT/ML X5UNITS SQ SCH (21:00)
[2016-07-29 03:59] LABS: Basophils % 1.3 %; Eosinophils # 0.2 K/mcL (0.0-0.6); Eosinophils % 6.8 %; Hematocrit 37.1 % (37.5-50.1); Immature Granulocytes % 0.3 % (0-4); Lymphocytes # 1.2 K/mcL (0.6-4.6); Lymphocytes % 40.1 %; Mean Corpuscular Hemoglobin 29.6 pg (28.0-33.3); Mean Corpuscular Volume 84.5 fL (83.0-100.0); Mean Platelet Volume 11.1 fL (9.4-12.4); Monocytes # 0.1 K/mcL (0.0-1.3); Monocytes % 4.5 %; Neutrophils # 1.5 K/mcL (1.6-8.9); Platelet Count 130 K/mcL (140-400); Red Blood Count 4.39 M/mcL (4.19-5.50); Red Cell Distribution Width 13.4 % (11.5-14.5)
[2016-07-29] MEDS: Famotidine 20 MG/2 ML VIAL IVP SCH (04:30)
[2016-07-29] MEDS: *HR* OxyCODONE/APAP 10/325 TABLET PO PRN ×2 (04:30→09:30)
[2016-07-29] MEDS: *HR* Heparin 5,000 UNIT/ML VIAL SQ SCH (04:36)
[2016-07-29] MEDS: Insulin LISPRO 300 UNITS/3 ML VIAL SQ SCH ×2 (09:30→15:12)
[2016-07-29 11:25] VITALS: BP 90/59
--- NOTE | 2016-07-29 15:02 | Discharge Summary ---
Date of Encounter: 07/29/16 Time of Encounter: 14:30 - Discharge Diagnosis (1) UTI (urinary tract infection) Priority: Primary Status: Acute Comments: Initial Urine culture mixed and unable to be interpreted. Given that he failed outpatient therapy with Levaquin, repeat urinalysis and repeat urine culture were obtained. Repeat urine culture consistent with yeast which is most likely a contamination. Spoke to infectious disease recommends changing the patient over to Augmentin and completing a 14 day course. Qualifiers: Urinary tract infection type: site unspecified Hematuria presence: with hematuria Qualified Code(s): N39.0 - Urinary tract infection, site not specified; R31.9 - Hematuria, unspecified (2) Impaired home maintenance management Priority: Primary Status: Acute Comments: Multiple issues with 2 prior home health service agencies causing them to not renew his services. We were able to have [facility] take on this patient. We have encouraged the patient to give the prescription for Chantix and to allow them to come into his house and to help him and his out. Patient remains cantankerous and incorrigible. 07/28/16 Social workers on board. APS visited the patient's home yesterday we have not yet heard back from her regarding her recommendations. Patient is amenable to home health services. [facility] and in home health have refused this patient for prior instances. [facility] may be accepting this patient if his primary care provider is able to sign off. If there are no issues with APS, possibly discharge tomorrow but unsafe to discharge at this time until we hear back from APS and until we hear whether or not [facility] will accept him. 07/27/16 In speaking with the patient, he states that he cannot go to an ECF stating that his is "handicapped and disabled" and that he takes care of her. When asked if he would be amenable to home health, patient stating that he has been trying to get home health for the past 6 months. He states several different reasons as to why he cannot have home health services. Some of his reasoning was difficult to follow. He mentioned that he has had issues before with there being 4 dogs inside the house and with fecal matter on the floor. He also stated issues with being discharged honorably discharged from the service. He also states issues with the dogs in the house though he states he keeps them locked in a back room where they "due to her business." In review of his chart, he and his are recently admitted and there was an attempt to place both of them that an ECF but it appears as if they have refused. It was noted that his was sitting in her fecal matter and was very unkempt. surgical services asst has been brought on board. OT and PT recommended home health so we will need to investigate the issues preventing him and his from having services at home. Urine culture was mixed and as he failed outpatient therapy for his urinary tract infection, we are repeating a urinalysis so he would not be fit to go home today anyways. (3) Hypokalemia Priority: Primary Status: Resolved (4) Uncontrolled diabetes mellitus Priority: Secondary Status: Chronic Comments: Uncontrolled with an A1c of 11.3%. Patient has a lengthy history of noncompliance. We attempted to educate him during this admission but he was nonreceptive. 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 Normotensive on day of discharge. Follow-up outpatient. Daily blood pressure checks at home. (6) CVA, old, hemiparesis Priority: Secondary Status: Chronic Comments: No new focal neurological weaknesses. Sending home with home health services. (7) Leukopenia Priority: Secondary Status: Chronic Comments: Acute on chronic over the past several years. Likely secondary to infection, stable. Follow-up outpatient. No signs of sepsis or SIRS Qualifiers: Leukopenia type: unspecified Qualified Code(s): D72.819 - Decreased white blood cell count, unspecified (8) Thrombocytopenia Priority: Primary Status: Acute Comments: Also acute on chronic at times. No signs of active bleeding, improved while admitted. Follow-up outpatient. (9) DVT prophylaxis Priority: Primary Status: Acute Comments: Subcutaneous heparin while admitted (10) Hyponatremia Priority: Primary Status: Resolved (11) Acute kidney injury Priority: Primary Status: Resolved - Discharge Medications Prescriptions: Amoxicillin/Clavulanate [Augmentin] 875 mg PO BIDWM #26 tablet Lisinopril [Zestril] 2.5 mg PO DAILY #15 tablet Home Medications: Albuterol Sulfate [Proventil] 4 mg PO BID 06/20/16 [History] Insulin Lispro Protamin/Lispro [Humalog Mix 75-25 Vial] 35 unit SQ BID 06/20/16 [History] Metformin HCl [Glucophage] 1,000 mg PO BID 06/20/16 [History] Tramadol HCl [Ultram] 50 mg PO Q4-6H PRN 06/20/16 [History] Albuterol Sulfate [Albuterol Inhaler] 1 puff IH PRN PRN 07/26/16 [History] Oxycodone HCl/Acetaminophen [Percocet 10-325 mg Tablet] 1 each PO Q4-6H PRN 08/08 [History] Polyethylene Glycol 3350 [MiraLAX bowel prep] 17 gm PO DAILY PRN 07/26/16 [ History] Potassium Chloride [K-Tab ER] 20 meq PO DAILY 07/26/16 [History] Rosuvastatin Calcium 40 mg PO DAILY 07/26/16 [History] Amoxicillin/Clavulanate [Augmentin] 875 mg PO BIDWM #26 tablet 07/29/16 [Rx] Lisinopril [Zestril] 2.5 mg PO DAILY #15 tablet 07/29/16 [Rx] Allergies/Adverse Reactions: Allergies loratadine [From Claritin] Adverse Reaction (Verified 07/26/16 10:44) Gastrointestinal Upset Date of admission: 07/26/16 03:59 Primary care physician: Rey Matson Consults: 07/26/16 02:00 Consult to Hay Stacker [CONS] Routine Reason for SW Consult: potential need for some home health 07/26/16 03:19 Consult to Nutrition [CONS] Routine Comment: Consulting Provider: NUTRITION Reason for Dietary Consult: Diet Education 07/26/16 03:26 Consult to Physical Therapy [CONS] Routine Comment: Evaluate, develop and implement POC OT [Consult to Occupational Therapy] [CONS] Routine Comment: Evaluate, develop and implement POC Discharging clinician: Giselle Aguilar Anticipated date of discharge: 07/29/16 (home [facility]) - Patient Status Disposition: Home Health Service Condition: Fair Functional capacity at discharge: uses cane/walker Overall status at discharge: patient is progressing back to baseline - Discharge Instructions Follow Up With: Rey Matson DO [Primary Care Provider] - 08/03/16 2:15 pm Additional Instructions: Followup with primary care provider as scheduled. - Diet and Activity Activity: increase activity as tolerated Diet: diabetic diet, low fat, low cholesterol, low salt diet Hospital course: Mr. Correa is a 71 year old male with past medical history of prior CVA with resultant right-sided hemiparesis, hypertension, history of urinary tract infections, COPD. Patient presented to the emergency department chief complaint progressive weakness. He states he had been taking treatment for urinary tract infection with levofloxacin. He denied fever, chest pain. He did endorse cough and shortness of breath. Markedly hyperglycemic upon presentation. Abnormal urinalysis also present. Patient was admitted to the hospitalist service for further evaluation and management. Chest x-ray negative. While admitted, patient was treated with Zosyn. Initial urine culture mixed so repeat urinalysis and urine culture were obtained. Repeat urine culture revealing yeast which is consistent with a contamination. Spoke to infectious disease who recommended changing the patient over to Augmentin and completing a 14 day course. Patient remained alert and oriented 3 throughout this admission. His diabetes was better controlled during this admission. His A1c is 11.3%. We attempted to educate patient as he has a lengthy history of noncompliance however he was not receptive to teaching. Regarding his increasing weakness, he had no new focal neurological deficits and continued with his right-sided weakness. He had acute kidney injury and hypokalemia that both resolved. He was also hypertensive and started on low- dose lisinopril and was normotensive at time of discharge. He was admitted and observed over the course of 4 days. He was seen and evaluated by occupational and physical therapy both of whom recommended home health services. surgical services asst was brought on board. Patient has a lengthy history with issues obtaining and retaining home health agencies. There are 2 home health agencies that will not take this patient back as a client. surgical services asst was able to find a third home health agency that was able to take this patient. APS was also brought on board during this admission. According to his chart, APS was involved during his most recent admission as well as his was brought to [facility] and she was disheveled and covered in her own fecal matter. During that visit, we attempted to place both the patient and his at a retirement however they have refused. Attempted to have a candid discussion with the patient regarding his prior issues with home health services however he remained cantankerous and incorrigible. He has a friend of the family that helps take care of his and his absence. Regarding his infection, his vital signs remained stable and he was able to tolerate a regular diet. He was discharged home with home health services in stable condition with close outpatient follow-up recommended. He was discharged with home health services and strongly encouraged to give this new company a chance to help him and his . ITS Impressions Chest X-Ray 07/25/16 20:13 IMPRESSION: No acute cardiopulmonary disease. Unchanged right paratracheal mass, likely a bronchogenic cyst. D/ / Jax Abrams MD / Jax Abrams MD Interpreting Provider: Jax Abrams MD - Time Spent with Patient Total time spent providing and/or coordinating discharge services: - Constitutional Vitals: Temp Pulse Resp BP Pulse Ox 98.2 F 88 16 90/59 94 07/29/16 11:25 07/29/16 11:25 07/29/16 11:25 07/29/16 11:25 07/29/16 11:25 General appearance: Present: cooperative, disheveled, A&O X 3, no acute distress , answers questions appropriately. Absent: pleasant - Head Head exam: Present: atraumatic, normocephalic - Eye Eye exam: Present: PERRL, conjuntiva pink, sclera anicteric Pupils: Present: PERRL - Neck Neck exam general surgery: Present: supple, trachea midline. Absent: lymphadenopathy - Respiratory Respiratory exam: Present: CTAB. Absent: accessory muscle use, rales, respiratory distress, rhonchi, wheezes - Cardiovascular Cardiovascular exam: Present: RRR, +S1, +S2. Absent: diastolic murmur, gallop, rubs, systolic murmur - GI/Abdominal GI/Abdominal exam: Present: normal bowel sounds, soft, no peritoneal signs. Absent: distended, tenderness - Extremities Exam Extremities exam: Present: warm, radial pulses palpable and symetrical. Absent : calf tenderness, cyanotic, pedal edema - Neurological Exam Neurological exam: Present: CN II-XII intact, oriented X3, no focal deficits, pronater drift (Chronic), facial droop, speech deficit. Absent: strengths equal and symetr throughout - Skin Skin exam: Present: dry, intact, pallor, warm
--- NOTE | 2016-07-29 15:33 | Physician Discharge Referral ---
Home Health/Hosp Referral Info Transfer to: Home Health Attending Provider: Marge Aguilar CNP Provider in Charge Post Discharge: PCP - Diagnosis (1) UTI (urinary tract infection) Priority: Primary Status: Acute (2) Impaired home maintenance management Priority: Primary Status: Acute (3) Hypokalemia Priority: Primary Status: Resolved (4) Uncontrolled diabetes mellitus Priority: Secondary Status: Chronic (5) Hypertension Priority: Secondary Status: Chronic (6) CVA, old, hemiparesis Priority: Secondary Status: Chronic (7) Leukopenia Priority: Secondary Status: Chronic (8) Thrombocytopenia Priority: Primary Status: Acute (9) DVT prophylaxis Priority: Primary Status: Acute (10) Hyponatremia Priority: Primary Status: Resolved (11) Acute kidney injury Priority: Primary Status: Resolved - Respiratory Orders Smoking Cessation: Smoking cessation has been advised. For more information, call the [place] Tobacco Quit Line at 5-510-RNSA-NOW. - Diet/Nutrition Diet/Nutrition Orders: No Added Salt (TAMMIE), No Concentrated Sweets - Activity Activity Orders: Ambulate (PT per), Walker - Services Needed Following services are medically necessary services: Nursing, Home Health Aide, Physical Therapy, Occupational Therapy, Speech Therapy - Transfer Medications Prescriptions: Amoxicillin/Clavulanate [Augmentin] 875 mg PO BIDWM #26 tablet Lisinopril [Zestril] 2.5 mg PO DAILY #15 tablet Home Medications: Albuterol Sulfate [Proventil] 4 mg PO BID 06/20/16 [History] Insulin Lispro Protamin/Lispro [Humalog Mix 75-25 Vial] 35 unit SQ BID 06/20/16 [History] Metformin HCl [Glucophage] 1,000 mg PO BID 06/20/16 [History] Tramadol HCl [Ultram] 50 mg PO Q4-6H PRN 06/20/16 [History] Albuterol Sulfate [Albuterol Inhaler] 1 puff IH PRN PRN 07/26/16 [History] Oxycodone HCl/Acetaminophen [Percocet 10-325 mg Tablet] 1 each PO Q4-6H PRN 08/08 [History] Polyethylene Glycol 3350 [MiraLAX bowel prep] 17 gm PO DAILY PRN 07/26/16 [ History] Potassium Chloride [K-Tab ER] 20 meq PO DAILY 07/26/16 [History] Rosuvastatin Calcium 40 mg PO DAILY 07/26/16 [History] Amoxicillin/Clavulanate [Augmentin] 875 mg PO BIDWM #26 tablet 07/29/16 [Rx] Lisinopril [Zestril] 2.5 mg PO DAILY #15 tablet 07/29/16 [Rx] Allergies/Adverse Reactions: Allergies loratadine [From Claritin] Adverse Reaction (Verified 07/26/16 10:44) Gastrointestinal Upset Certification: Further, I certify that my clinical findings support that this patient is homebound (i.e. absences from home require considerable and taxing effort and are for medical reasons or baptism services or infrequently or short duration when for other reasons) because: Homebound Reason: Patient requires assistance of a person or device to safely leave home, Leaving home requires considerable and taxing effort due to condition Attestation: My signature below is to certify that this patient is under my care and that I, or nurse practitioner, or a physician's therapeutic assistant working with me, has a face-to -face encounter with this patient.
== END 2016-07-29 15:51 | disposition home health service (06) | DRG 690 ==
LOC: EMEROO 19:45 → 3BNU 19:45
PROVIDERS: ADMIT Internal Medicine; ATTEND Nurse Practitioner Family

== ENCOUNTER 2017-01-13 21:13 | Inpatient (IN) ==
[2017-01-13] MEDS ORDERED: 0.9 % Sodium Chloride 1,000 ML IVC ONE (21:39)
[2017-01-13 22:05] LABS: Hematocrit 40.2 % (37.5-50.1); Hemoglobin 14.5 g/dL (12.9-16.9); Immature Platelets 4.4 % (1.1-6.1); Mean Corpuscular HGB Conc 36.1 g/dL (31.6-35.5); Mean Corpuscular Hemoglobin 30.8 pg (28.0-33.3); Mean Corpuscular Volume 85.4 fL (83.0-100.0); Mean Platelet Volume 10.4 fL (9.4-12.4); Red Blood Count 4.71 M/mcL (4.19-5.50); Red Cell Distribution Width 12.7 % (11.5-14.5)
[2017-01-13 22:16] LABS: Calcium 9.5 mg/dL (8.6-10.8); Potassium 3.7 mEq/L (3.5-4.5)
[2017-01-13] MEDS ORDERED: Vancomycin 1,250 MG in D5% in Water 250 ML IVPB ONE (22:19)
[2017-01-13] MEDS ORDERED: Piperacillin/Tazobactam 4.5 GM in D5% in Water (Mini-Bag+) 100 ML IVPB ONE (22:20)
--- NOTE | 2017-01-13 22:32 | Emergency Department Note ---
Disposition Clinical Impression: Cellulitis of right lower extremity Diabetes mellitus with hyperglycemia Qualifiers: Diabetes mellitus type: other specified (including KARIS) Diabetes mellitus residential insulin use: unspecified residential insulin use status Qualified Code(s ): E13.65 - Other specified diabetes mellitus with hyperglycemia Chronic renal failure Qualifiers: Chronic kidney disease stage: unspecified stage Qualified Code(s): N18.9 - Chronic kidney disease, unspecified Disposition: Admitted As Inpatient Condition: Fair Referrals: NONE,PCP [Primary Care Provider] - Forms: ED Satisfaction Letter Extremity Problem HPI - General Chief complaint: ED Extremity Problem,Nontraumatic Stated complaint: swollen rt leg Time Seen by Provider: 01/13/17 21:38 Source: patient Limitations: no limitations Nursing Notes Reviewed: Yes Vital Signs Reviewed: Yes - History of Present Illness HPI Narrative: Presents with right lower extremity swelling and pain and this has been present through the day today and began gradually and is constant. No medication has been used. States the toenail of the right great toe was pulled off by his dog. He does have a history of diabetes. He denies any fevers or confusion or vomiting. No medication specifically use. Social history: No smoking or alcohol Pain Scale: 8 - Related Data Home Medications Medication Instructions Recorded Confirmed Albuterol Sulfate [Proventil] 4 mg PO BID 06/20/16 07/26/16 Insulin Lispro Protamin/Lispro 35 unit SQ BID 06/20/16 07/26/16 [Humalog Mix 75-25 Vial] Metformin HCl [Glucophage] 1,000 mg PO BID 06/20/16 07/26/16 Tramadol HCl [Ultram] 50 mg PO Q4-6H PRN 06/20/16 07/26/16 Albuterol Sulfate [Albuterol 1 puff IH PRN PRN 07/26/16 07/26/16 Inhaler] Oxycodone HCl/Acetaminophen 1 each PO Q4-6H PRN 07/26/16 07/26/16 [Percocet 10-325 mg Tablet] Polyethylene Glycol 3350 [MiraLAX 17 gm PO DAILY PRN 07/26/16 07/26/16 bowel prep] Potassium Chloride [K-Tab ER] 20 meq PO DAILY 07/26/16 07/26/16 Rosuvastatin Calcium 40 mg PO DAILY 07/26/16 07/26/16 Previous Rx's Medication Instructions Recorded Amoxicillin/Clavulanate [Augmentin] 875 mg PO BIDWM #26 tablet 07/29/16 Lisinopril [Zestril] 2.5 mg PO DAILY #15 tablet 07/29/16 Allergies Allergy/AdvReac Type Severity Reaction Status Date / Time loratadine [From Claritin] AdvReac Gastrointestinal Verified 01/13/17 21:24 Upset Review of Systems: Constitutional: No fever Vision: No blurred vision ENT: No rhinorrhea Respiratory: No cough Allergic: No allergies : No blood in urine GI: No blood in stool Hematologic: No bruising Dermatologic: + skin rash Musculoskeletal: + pain in the extremities Neuro: + numbness of the extremities Past Medical History - Past Medical History Medical history: Reports: COPD, CVA, diabetes, hyperlipidemia Surgical history: Reports: cholecystectomy, herniorrhaphy, other Psychiatric history: Reports: depression - Social History Smoking Status: Never smoker Smokeless Tobacco Status: No Alcohol use: Reports: none Drug use: Reports: none Physical Exam CONSTITUTIONAL: Alert and oriented X3, well-nourished, well appearing, in no apparent distress HEAD: Normocephalic; atraumatic. EYES: PERRL, no scleral icterus. NOSE: The nose is normal in appearance without rhinorrhea RESP: Normal chest excursion with respiration; breath sounds clear and equal bilaterally; no wheezes, rhonchi, or rales CARD: Regular rhythm, without murmurs, rub or gallop ABD: Non-distended; non-tender, soft,without rigidity, rebound or guarding SKIN: Normal for age and race; warm and dry; no apparent lesions Extremities right lower extremity is significantly swollen and tender with palpation with generalized erythema, the right great toe nail is missing however there is no purulence at this site. There is no crepitus anywhere of the right lower extremity and there is no ecchymosis or necrotic or fluctuant areas. Doppler pulses are obtained both dorsal pedal and posterior tibial - General Limitations: no limitations General appearance: alert Course Vital Signs Temperature 98.3 F 01/13/17 21:20 Pulse Rate 84 01/13/17 21:20 Respiratory Rate 18 01/13/17 21:20 Blood Pressure 131/62 01/13/17 21:20 O2 Sat by Pulse Oximetry 97 01/13/17 21:20 Temperature 98.3 F 01/13/17 21:20 Pulse Rate 93 01/13/17 22:45 Respiratory Rate 20 01/13/17 22:45 Blood Pressure 142/89 01/13/17 22:45 O2 Sat by Pulse Oximetry 97 01/13/17 22:45 Oxygen Delivery Oxygen Delivery Room Air Extremity Problem, Nontraumati - MDM Narrative Medical decision making narrative: I did review the labs showing chronic renal failure, with blood cell count is normal, the lactate is discerning as it is elevated at 2.7. The patient is started on vancomycin, Zosyn. There is any bacteria from the patient's dog. The patient will be admitted. The hospitalist was paged. Doppler studies pending. 2231 Doppler negative. I spoke with the hospitalist who accepts. 2246 - Lab Data Result diagrams: 01/13/17 21:59 01/13/17 21:59 Lab Results 01/13/17 01/13/17 01/13/17 Range/Units 21:59 21:59 21:59 WBC 8.8 (4.3-11.1) K/mcL RBC 4.71 (4.19-5.50) M/mcL Hgb 14.5 (12.9-16.9) g/dL Hct 40.2 (37.5-50.1) % MCV 85.4 (83.0-100.0) fL MCH 30.8 (28.0-33.3) pg MCHC 36.1 H (31.6-35.5) g/dL RDW 12.7 (11.5-14.5) % Plt Count 171 (140-400) K/mcL MPV 10.4 (9.4-12.4) fL Immature Plt Fraction 4.4 (1.1-6.1) % Sodium 134 L (136-145) mEq/L Potassium 3.7 (3.5-4.5) mEq/L Chloride 95 L (98-109) mEq/L Carbon Dioxide 25 (19-29) mEq/L BUN 25 (8-26) mg/dL Creatinine 1.42 H (0.72-1.25) mg/dL Est GFR ( Amer) 60 (> 60) Est GFR (Non-Af Amer) 49 L (> 60) BUN/Creatinine Ratio 18 (6-26) Glucose 418 H (70-99) mg/dL Calculated Osmolality 300 (280-300) Lactic Acid 2.7 H (0.5-2.2) mmol/L Calcium 9.5 (8.6-10.8) mg/dL
[2017-01-13] MEDS ORDERED: Aminoglycoside Consult 1 EACH MC ONE (22:48)
--- NOTE | 2017-01-13 23:17 | Internal Med History&Physical ---
<Angus Garzon - Last Filed: 01/14/17 01:46> Date of Encounter: 01/14/17 Time of Encounter: 23:16 Assessment and Plan (1) Cellulitis of right lower extremity Current visit: Yes Status: Acute RLE cellulitis Patient has 1 SIRS critieria for tachycardia HR 93, is afebrile, no leukocytosis. Initial Lactic acid 2.7, repeat level pending Patient reports his dog pulled the toenail off his right great toe Blood and wound cultures pending 30mg/kg bolus given in the ED Continue emperic Vanc and Zosyn until cultures resulted Pain control with Ibuprofen and Percocet prn (2) Acute kidney injury Current visit: No Status: Resolved 30mg/kg bolus given in the ED, continue IVF at 125cc/hr Continue to monitor (3) Lactic acidosis Current visit: Yes Status: Acute Initial Lactic acid 2.7, repeat level pending Anion gap 14, continue IVF and repeat BMP (4) Uncontrolled diabetes mellitus Current visit: No Status: Chronic HGB a1c 11.3 on 07/26/16 Repeat HGB a1c pending Continue accuchecks and SSI. 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 (5) COPD (chronic obstructive pulmonary disease) Current visit: Yes Status: Chronic Not in exacerbation Patient denies ever smoking Continue home meds Qualifiers: COPD type: unspecified COPD Qualified Code(s): J44.9 - Chronic obstructive pulmonary disease, unspecified (6) History of CVA (cerebrovascular accident) Current visit: Yes Status: Chronic Residual left arm contracture and wheelchair bound status Continue to monitor (7) DVT prophylaxis Current visit: No Status: Acute Heparin SubQ TID Internal Medicine - H&P: HPI Chief complaint: Right leg swelling Admitted From: Home Plans for Post Hospital Care: Home History of present illness: Mr. Correa is a 71 year old wheel chair bound male with a PMH of COPD, CVA with residual left arm contracture, DM, hyperlipidemia, and obesity presented c/ o right leg swelling and pain since this morning. He reports right leg pain is constant, 8/10 severity, and redness and swelling are gradually getting worse. He reports the toenail of the right great toe was pulled off earlier today while playing with his dog. He reports blood glucose usually between high 200s to 300 at home. 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 Blood cultures were collected. In the ED, U/S was negative for DVT, Lactic acid was 2.7, and paint was started on empiric Vanc and Zosyn. Past Med Surg Social Fam HX - Past Medical History Medical history: COPD, CVA, diabetes, hyperlipidemia Psychiatric history: depression - Past Surgical History Surgical History: cholecystectomy, herniorrhaphy, other - Social History Smoking Status: Never smoker Smokeless Tobacco Status: No Alcohol use: none Drug use: none - Family History Mother Living Status: Hx Family Cancer: Yes (lung cANCER) Father Hx Family Cancer: Yes (Lung) Internal Medicine - H&P: Meds Albuterol Sulfate [Proventil] 4 mg PO BID 06/20/16 [History] Insulin Lispro Protamin/Lispro [Humalog Mix 75-25 Vial] 35 unit SQ BID 06/20/16 [History] Metformin HCl [Glucophage] 1,000 mg PO BID 06/20/16 [History] Tramadol HCl [Ultram] 50 mg PO Q4-6H PRN 06/20/16 [History] Albuterol Sulfate [Albuterol Inhaler] 1 puff IH PRN PRN 07/26/16 [History] Potassium Chloride [K-Tab ER] 20 meq PO DAILY 07/26/16 [History] Rosuvastatin Calcium 40 mg PO DAILY 07/26/16 [History] Lisinopril [Zestril] 2.5 mg PO DAILY #15 tablet 07/29/16 [Rx] 3 Allergy/AdvReac Type Severity Reaction Status Date / Time loratadine [From Claritin] AdvReac Gastrointestinal Verified 01/13/17 21:24 Upset All Systems PM: A 10-system review of systems was performed and is negative for pertinent findings except as documented above in the HPI. - Constitutional Constitutional: no chills, no fever(s), no weight gain, no weight loss - EENT Eyes: no change in vision Nose, mouth and throat: no nasal congestion, no sore throat - Cardiovascular Cardiovascular ROS IM: no chest pain, no palpitations - Respiratory Respiratory: no cough, no excessive phlegm production - Gastrointestinal Gastrointestinal: no abdominal pain, no diarrhea, no nausea, no vomiting - Genitourinary Genitourinary ROS male: no dysuria, no urinary frequency, no urinary urgency - Musculoskeletal Musculoskeletal ROS IM: arthralgias, limited range of motion, myalgias, numbness , no back pain, no tingling - Integumentary Integumentary IM: erythema, rash - Neurological Neurological ROS: numbness, no confusion, no dizziness, no tingling - Psychiatric Psychiatric: no anxiety, no depression - Endocrine Endocrine IM: no polydipsia, no polyphagia, no polyuria - Constitutional Vitals: Temp Pulse Resp BP Pulse Ox 98.3 F 93 20 155/81 97 01/13/17 21:20 01/13/17 22:45 01/13/17 23:09 01/13/17 23:09 01/13/17 22:45 General appearance: Present: cooperative, A&O X 3, pleasant, no acute distress, obese, answers questions appropriately - Head Head exam: Present: atraumatic, normal inspection, normocephalic - Eye Eye exam: Present: EOMI, PERRL - ENT ENT exam: Present: mucous membranes moist, normal oropharynx - Neck Neck exam general surgery: Present: normal inspection, supple. Absent: tenderness - Respiratory Respiratory exam: Present: CTAB. Absent: wheezes - Cardiovascular Cardiovascular exam: Present: RRR, +S1, +S2 - GI/Abdominal GI/Abdominal exam: Present: normal bowel sounds. Absent: distended, guarding, soft, tenderness - Extremities Exam Extremities exam: Present: pedal edema (entire RLE erythematous with proximal streaking, right great toenail avulsion, no bleeding of ulcerations, 2+ edema) - Back Exam Back exam: Present: normal inspection. Absent: paraspinal tenderness - Neurological Exam Neurological exam: Present: alert, motor sensory deficit (LUE contracture s/p CVA), oriented X3. Absent: altered - Psychiatric Psychiatric exam: Present: normal affect, normal mood - Skin Skin exam: Present: erythema (entire RLE erythematous with proximal streaking, right great toenail avulsion, no bleeding of ulcerations), rash, warm Internal Med - H&P Results - Labs CBC & Chem 7: 01/14/17 01:17 01/14/17 01:17 - Impressions U/S RLE negative for DVT in the ED <Yu Teague - Last Filed: 01/14/17 06:04> Date of Encounter: 01/14/17 Time of Encounter: 04:15 Internal Medicine - H&P: HPI History of present illness: Mr. Correa is a 71 year old male All Systems PM: A 10-system review of systems was performed and is negative for pertinent findings except as documented above in the HPI. - Constitutional Vitals: Temp Pulse Resp BP Pulse Ox 100.3 F H 101 20 126/68 93 01/14/17 04:30 01/14/17 04:30 01/14/17 04:30 01/14/17 04:30 01/14/17 04:30 Internal Med - H&P Results - Labs CBC & Chem 7: 01/14/17 01:17 01/14/17 01:17 Labs: Short CBC 01/14/17 Range/Units 01:17 WBC 9.2 (4.3-11.1) K/mcL Hgb 13.6 (12.9-16.9) g/dL Hct 38.7 (37.5-50.1) % Plt Count 156 (140-400) K/mcL Neutrophils # 7.7 (1.6-8.9) K/mcL BMP 01/14/17 01:17 Sodium 135 L Potassium 3.9 Chloride 100 Carbon Dioxide 22 BUN 23 Creatinine 1.24 Glucose 377 H Calcium 8.6 Liver Function 01/14/17 Range/Units 01:17 Total Bilirubin 0.8 (0.2-1.2) mg/dL AST 10 (5-34) Units/L ALT 12 (0-55) Units/L Alkaline Phosphatase 108 (38-126) Units/L Albumin 3.2 L (3.5-5.0) g/dL - Attending Attestation I have independently seen and examined the patient. Admitted for sepsis secondary to LE cellulitis. continue empiric IV abx. Pain control with morphine and oxycodone IV fluids Lactic acidosis secondary to infectious etiology, continue IV fluids mild LING noted. avoid nephrotoxin agents. D/C Ibuprofen uncontrolled BG, will continue levemir and sliding scale insulin algorithm Case discussed with resident physician Angus Garzon, I agree with his documented findings, assessment, and plan except as listed above.
[2017-01-13] MEDS ORDERED: Ondansetron 4 MG/2 ML VIAL IVP PRN (23:26)
[2017-01-13] MEDS ORDERED: Naloxone 0.4 MG/ML INJ IVP PRN (23:26)
[2017-01-13] MEDS ORDERED: traMADol 50 MG TABLET PO PRN (23:28)
[2017-01-13] MEDS ORDERED: Dextrose Gel 15 GM PO PRN ×2 (23:29)
[2017-01-13] MEDS ORDERED: *HR* Dextrose 50 % in Water (Syg) 50 ML SYRINGE IVP PRN (23:29)
[2017-01-13] MEDS ORDERED: D5% in Water 1,000 ML IVC PRN (23:29)
[2017-01-13 23:41] LABS: Prothrombin Time 10.8 Seconds (9.4-12.1)
[2017-01-13 23:44] LABS: Activated Partial Thrombo Time 28.3 Seconds (26.0-36.0)
[2017-01-13 23:47] LABS: Albumin 3.8 g/dL (3.5-5.0); Albumin/Globulin Ratio 1.1 (1.1-2.2); Bilirubin,Direct 0.3 mg/dL (0.0-0.5); Bilirubin,Indirect 0.4 mg/dL (0.0-1.2); Bilirubin,Total 0.7 mg/dL (0.2-1.2); Globulin 3.6 g/dL (2.4-3.5); Total Protein 7.4 g/dL (6.0-8.3)
[2017-01-13] MEDS: Insulin DETEMIR 100 UNIT/ML X5UNITS SQ SCH (23:55)
[2017-01-14] MEDS ORDERED: Ipratropium/Albuterol Neb 3 ML IH PRN (00:41)
[2017-01-14 01:26] LABS: Basophils # 0.1 K/mcL (0.0-0.2); Basophils % 0.5 %; Eosinophils # 0.1 K/mcL (0.0-0.6); Eosinophils % 0.8 %; Hematocrit 38.7 % (37.5-50.1); Hemoglobin 13.6 g/dL (12.9-16.9); Immature Granulocytes % 1.1 % (0-4); Immature Platelets 3.5 % (1.1-6.1); Lymphocytes # 0.9 K/mcL (0.6-4.6); Lymphocytes % 9.7 %; Mean Corpuscular HGB Conc 35.1 g/dL (31.6-35.5); Mean Corpuscular Hemoglobin 30.2 pg (28.0-33.3); Mean Platelet Volume 10.2 fL (9.4-12.4); Monocytes # 0.3 K/mcL (0.0-1.3); Monocytes % 3.6 %; Neutrophils # 7.7 K/mcL (1.6-8.9); Platelet Count 156 K/mcL (140-400); Red Cell Distribution Width 12.7 % (11.5-14.5); Segmented Neutrophils % 84.3 %
[2017-01-14 01:40] LABS: Alanine Aminotransferase 12 Units/L (0-55); Albumin 3.2 g/dL (3.5-5.0); Alkaline Phosphatase 108 Units/L (38-126); Aspartate Amino Transferase 10 Units/L (5-34); BUN/Creatinine Ratio 19 (6-26); Bilirubin,Total 0.8 mg/dL (0.2-1.2); Blood Urea Nitrogen 23 mg/dL (8-26); Calcium 8.6 mg/dL (8.6-10.8); Carbon Dioxide 22 mEq/L (19-29); Chloride 100 mEq/L (98-109); Globulin 3.1 g/dL (2.4-3.5); Glucose 377 mg/dL (70-99); Osmolality,Calculated 299 (280-300); Potassium 3.9 mEq/L (3.5-4.5); Sodium 135 mEq/L (136-145); Total Protein 6.3 g/dL (6.0-8.3); eGFR For African Americans > 60 (> 60); eGFR For Non-African Americans 57 (> 60)
[2017-01-14 01:41] LABS: Hemoglobin A1C 9.8 %
[2017-01-14] MEDS: *HR* OxyCODONE/APAP 5/325 TABLET PO PRN ×3 (03:31→20:54)
[2017-01-14] MEDS ORDERED: *HR* Morphine 2 MG/ML SYRINGE IVP PRN (05:58)
[2017-01-14] MEDS: Famotidine 20 MG/2 ML VIAL IVP SCH ×2 (06:12→16:42)
[2017-01-14] MEDS: Insulin LISPRO 300 UNITS/3 ML VIAL SQ SCH ×5 (06:13→20:59)
[2017-01-14] MEDS: *HR* Heparin 5,000 UNIT/ML VIAL SQ SCH ×3 (06:14→20:55)
[2017-01-14] MEDS ORDERED: Insulin LISPRO 300 UNITS/3 ML VIAL SQ SCH ×2 (07:30→12:00)
[2017-01-14] MEDS ORDERED: Ibuprofen 400 MG TABLET PO SCH (08:00)
[2017-01-14] MEDS: Insulin NPH/REG 70/30 100 UNIT/ML (x5UNIT) SQ SCH ×2 (09:00→16:42)
[2017-01-14] MEDS: Piperacillin/Tazobactam 3.375 GM in D5% in Water (Mini-Bag+) 100 ML IVPB SCH ×3 (09:00→23:43)
[2017-01-14] MEDS ORDERED: NON-FORMULARY MEDICATION 1 EACH EACH (Insulin Lispro Protamin/Lispro [Humalog Mix 75-25 Vi SQ SCH (09:00)
[2017-01-14] MEDS: 0.9 % Sodium Chloride 1,000 ML IVC SCH ×2 (09:01)
[2017-01-14] MEDS ORDERED: Vancomycin 1,000 MG in D5% in Water 250 ML IVPB SCH (10:00)
[2017-01-14] MEDS: Insulin DETEMIR 100 UNIT/ML X5UNITS SQ SCH (20:55)
[2017-01-14] MEDS ORDERED: Vancomycin 1,250 MG in D5% in Water 250 ML IVPB SCH (23:00)
[2017-01-15 03:53] LABS: Basophils # 0.1 K/mcL (0.0-0.2); Basophils % 0.7 %; Eosinophils # 0.1 K/mcL (0.0-0.6); Hematocrit 36.8 % (37.5-50.1); Hemoglobin 12.8 g/dL (12.9-16.9); Immature Granulocytes % 1.2 % (0-4); Lymphocytes % 13.3 %; Mean Corpuscular HGB Conc 34.8 g/dL (31.6-35.5); Mean Corpuscular Hemoglobin 30.3 pg (28.0-33.3); Mean Platelet Volume 10.6 fL (9.4-12.4); Monocytes # 0.4 K/mcL (0.0-1.3); Monocytes % 5.2 %; Neutrophils # 5.8 K/mcL (1.6-8.9); Platelet Count 158 K/mcL (140-400); Red Blood Count 4.23 M/mcL (4.19-5.50); Red Cell Distribution Width 13.1 % (11.5-14.5); Segmented Neutrophils % 78.6 %
[2017-01-15 04:12] LABS: BUN/Creatinine Ratio 17 (6-26); Blood Urea Nitrogen 20 mg/dL (8-26); Calcium 8.2 mg/dL (8.6-10.8); Carbon Dioxide 22 mEq/L (19-29); Chloride 106 mEq/L (98-109); Glucose 150 mg/dL (70-99); Osmolality,Calculated 289 (280-300); Sodium 137 mEq/L (136-145); eGFR For African Americans > 60 (> 60); eGFR For Non-African Americans > 60 (> 60)
[2017-01-15] MEDS: *HR* Heparin 5,000 UNIT/ML VIAL SQ SCH ×3 (05:49→21:18)
[2017-01-15] MEDS: Famotidine 20 MG/2 ML VIAL IVP SCH ×2 (05:50→17:50)
[2017-01-15] MEDS: Piperacillin/Tazobactam 3.375 GM in D5% in Water (Mini-Bag+) 100 ML IVPB SCH ×2 (07:38→17:49)
[2017-01-15] MEDS: Insulin LISPRO 300 UNITS/3 ML VIAL SQ SCH ×4 (10:43→23:21)
[2017-01-15] MEDS: Insulin NPH/REG 70/30 100 UNIT/ML (x5UNIT) SQ SCH ×2 (10:43→17:52)
--- NOTE | 2017-01-15 12:21 | Internal Med Progress Note ---
Date of Encounter: 01/15/17 Time of Encounter: 12:18 - Assessment and plan (1) Cellulitis of right lower extremity Current Visit: Yes Status: Acute Assessment and plan: Right leg erythema, edema and tenderness, also concerning for DVT. However, venous Doppler of right lower extremity shows no evidence of DVT. Continue broad-spectrum IV antibiotics-vancomycin and Zosyn. Blood cultures and preliminary wound culture showed no significant bacterial growth. Pain control with when necessary IV morphine and oral Percocet. Lower extremity elevation and supportive care. Physical and occupational therapy evaluation. (2) Acute kidney injury Current Visit: Yes Status: Resolved Assessment and plan: Likely related to dehydration and infection. Resolved with IV hydration. (3) Hypertension Current Visit: Yes Status: Chronic Assessment and plan: Blood pressure noted to be well controlled. Continue home medications. Qualifiers: Hypertension type: essential hypertension Qualified Code(s): I10 - Essential (primary) hypertension (4) CVA, old, hemiparesis Current Visit: Yes Status: Chronic Assessment and plan: History of CVA with residual right-sided hemiparesis, right facial droop and dysarthria. Patient is mainly bed and wheelchair bound at home and he also helps to take care of his who also suffers from hemiplegia. Physical and occupational therapy evaluation. member services coordinator on board for safe discharge as patient is concerned about his who is alone at home. (5) Diabetes mellitus with hyperglycemia Current Visit: Yes Status: Chronic Assessment and plan: Blood sugars are noted to be better controlled. Accu-Chek blood glucose monitoring with basal bolus insulin regimen. Diabetic diet. 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 Improved with IV hydration. Hold metformin and other oral hypoglycemics for now. (7) COPD (chronic obstructive pulmonary disease) Current Visit: Yes Status: Chronic Qualifiers: COPD type: unspecified COPD Qualified Code(s): J44.9 - Chronic obstructive pulmonary disease, unspecified - Subjective Interval history: Feels better; had low grade fever earlier this morning; improving right leg swelling and pain, but still has redness; - Constitutional Vitals: Temp Pulse Resp BP Pulse Ox 99.0 F 72 17 130/76 95 01/15/17 10:35 01/15/17 10:35 01/15/17 10:35 01/15/17 10:35 01/15/17 10:35 General appearance: Present: cooperative, A&O X 3, answers questions appropriately - Respiratory Respiratory exam: Present: CTAB. Absent: accessory muscle use, rales, rhonchi, wheezes - Cardiovascular Cardiovascular exam: Present: RRR, +S1, +S2. Absent: diastolic murmur, gallop, rubs, systolic murmur - GI/Abdominal GI/Abdominal exam: Present: normal bowel sounds, soft, no peritoneal signs. Absent: distended, tenderness - Extremities Exam Extremities exam: Present: normal inspection (onychomycosis, excised great toe nail), pedal edema (right leg with diffuse edema, erythema, tenderness- slowly improving), warm, radial pulses palpable and symmetrical. Absent: calf tenderness, cyanotic - Neurological Exam Neurological exam: Present: CN II-XII intact (dysarthria), oriented X3, no focal deficits (right-sided hemiparesis). Absent: pronater drift, facial droop , speech deficit - Skin Skin exam: Present: dry, intact Internal Medicine: Result - Labs CBC & Chem 7: 01/15/17 03:16 01/15/17 03:16 Labs: Short CBC 01/15/17 Range/Units 03:16 WBC 7.4 (4.3-11.1) K/mcL Hgb 12.8 L (12.9-16.9) g/dL Hct 36.8 L (37.5-50.1) % Plt Count 158 (140-400) K/mcL Neutrophils # 5.8 (1.6-8.9) K/mcL BMP 01/15/17 03:16 Sodium 137 Potassium 4.0 Chloride 106 Carbon Dioxide 22 BUN 20 Creatinine 1.19 Glucose 150 H Calcium 8.2 L - ABG Interpretation ABG results: PT/INR, D-dimer PT 10.8 Seconds (9.4-12.1) 01/13/17 21:59 Consult Discharge Plan - Plan Referrals: NONE,PCP [Primary Care Provider] - Prescriptions: Amoxicillin/Clavulanate [Augmentin] 875 mg PO BIDWM #24 tablet Doxycycline Hyclate 100 mg PO BID #24 tablet
[2017-01-15] MEDS: Insulin DETEMIR 100 UNIT/ML X5UNITS SQ SCH (21:17)
[2017-01-16] MEDS: Piperacillin/Tazobactam 3.375 GM in D5% in Water (Mini-Bag+) 100 ML IVPB SCH ×3 (00:30→15:33)
[2017-01-16] MEDS: *HR* Heparin 5,000 UNIT/ML VIAL SQ SCH ×3 (05:44→21:33)
[2017-01-16] MEDS: Famotidine 20 MG/2 ML VIAL IVP SCH (06:19)
--- NOTE | 2017-01-16 08:29 | Venous Imaging Report ---
LE Venous Duplex Patient Name:Hood Correa Order Number:[id number] Procedure Date:01/13/2017 Date:1945ge:71 yrs Gender:Male Location:[facility] ED Room #: ED10 Powerhouse Oiler:Sary Rucker RDCS Referring MD:Rey Junior MD mold capper helper:None Reading MD:Darius Sesay MD Primary Indications:Right leg swelling Secondary Indications: Impressions: Right lower extremity: normal superficial and deep exam. Recommendations: Test completed on 01/13/2017 at 10:36:00 pm. Critical findings reported to Dr. Junior-ED- in person at 10:37:00 pm on 01/13/2017 by Sary Rucker RDCS. Findings Prior Study: No prior study available for comparison. Lower Extremity Venous Duplex Side Vein Compress Spontaneous Flow Augment Diameter (cm) Depth (cm) Right Distal Iliac Normal Yes Phasic Yes Right Common Femoral Normal Yes Phasic Yes Right Superficial Femoral Normal Yes Phasic Yes Right Popliteal Normal Yes Phasic Yes Right Posterior Tibial Normal Yes Phasic Yes Right Peroneal Normal Yes Phasic Yes Right Saphenofemoral Junction Normal Yes Phasic Yes Right Great Saphenous Normal Yes Phasic Yes Right Lesser Saphenous Normal Yes Phasic Yes Left Common Femoral Normal Yes Phasic Yes Updated by Darius Sesay MD on 01/14/2017 4:25:57 PM electronically signed on 01/14/2017 4:26:09 PM with status of Final
--- NOTE | 2017-01-16 08:29 | Arterial Study Report ---
LE Arterial Physiologic Study Patient Name:Hood Correa Order Number:[id number] Procedure Date:01/14/2017 Date:1945ge:71 yrs Gender:Male Lt BP:85 / mmHg Location:[facility] Room #: [address] Department Dispatcher:Sergio Becerra, ESTEVANT, RDCS Referring MD:Angus Garzon DO curtain cleaner:None Reading MD:Darius Sesay MD Primary Indications:uncontrolled diabetes mellitus Risk Factors Yes/No Diabetes Yes Impressions: Normal arterial waveforms bilaterally, but the vessels were non-compressible Non-compressible vvessels may mask underlying arterial disease. Recommendations: After imaging the patient returned to their room. Test completed on 01/14/2017 at 2:20:59 pm. Findings LE Arterial Physiologic Exam: PVR: Right: The PVR waveforms are mildly diminished in the right ankle. Left: The PVR waveforms are normal in the left ankle. Prior Study: No prior study available for comparison. Segmental Pressures Side Location Pressure Index Result Right Posterior Tibial 255 3.00 noncompressible Right Dorsalis Pedis 255 3.00 noncompressible Left Posterior Tibial 255 3.00 noncompressible Left Dorsalis Pedis 255 3.00 noncompressible Ankle Brachial Index Right Systolic Diastolic YE Brachial 3.00 Dorsalis Pedis 255 3.00 Posterior Tibial 255 3.00 Left Systolic Diastolic YE Brachial 85 3.00 Dorsalis Pedis 255 3.00 Posterior Tibial 255 3.00 Updated by Darius Sesay MD on 01/14/2017 4:39:20 PM with Status of Final electronically signed on 01/14/2017 4:39:33 PM with status of Final
[2017-01-16] MEDS: Insulin LISPRO 300 UNITS/3 ML VIAL SQ SCH ×4 (08:53→21:32)
[2017-01-16] MEDS: Insulin NPH/REG 70/30 100 UNIT/ML (x5UNIT) SQ SCH ×2 (09:27→19:01)
[2017-01-16] MEDS: *HR* OxyCODONE/APAP 5/325 TABLET PO PRN ×2 (10:04→21:38)
--- NOTE | 2017-01-16 13:47 | Internal Med Progress Note ---
Date of Encounter: 01/16/17 Time of Encounter: 13:45 - Assessment and plan (1) Cellulitis of right lower extremity Current Visit: Yes Status: Acute Assessment and plan: Improving erythema. venous Doppler of right lower extremity shows no evidence of DVT. Continue IV antibiotics-Zosyn and start Doxycycline; hold Vancomycin. Start IV Lasix. Blood cultures and preliminary wound culture showed no significant bacterial growth. Pain control with when necessary IV morphine and oral Percocet. Lower extremity elevation and supportive care. Physical and occupational therapy evaluation. coordinator volunteer services consulted, plan to send patient to the same rehab where his was admitted today. (2) Lactic acidosis Current Visit: Yes Status: Resolved (3) Acute kidney injury Current Visit: Yes Status: Resolved (4) Hypertension Current Visit: Yes Status: Chronic Assessment and plan: Blood pressure noted to be well controlled. Continue home medications. Qualifiers: Hypertension type: essential hypertension Qualified Code(s): I10 - Essential (primary) hypertension (5) CVA, old, hemiparesis Current Visit: Yes Status: Chronic Assessment and plan: History of CVA with residual right-sided hemiparesis, right facial droop and dysarthria. Patient is mainly bed and wheelchair bound at home and he also helps to take care of his who also suffers from hemiplegia. Physical and occupational therapy evaluation. coordinator volunteer services on board for safe discharge as patient is concerned about his who is alone at home. (6) Diabetes mellitus with hyperglycemia Current Visit: Yes Status: Chronic Assessment and plan: Blood sugars are noted to be better controlled. Accu-Chek blood glucose monitoring with basal bolus insulin regimen. Diabetic diet. Qualifiers: Diabetes mellitus type: type 2 Diabetes mellitus longterm insulin use: with longterm use Qualified Code(s): E11.65 - Type 2 diabetes mellitus with hyperglycemia; Z79.4 - senior living (current) use of insulin (7) COPD (chronic obstructive pulmonary disease) Current Visit: Yes Status: Chronic Qualifiers: COPD type: unspecified COPD Qualified Code(s): J44.9 - Chronic obstructive pulmonary disease, unspecified - Subjective Interval history: Improving redness of right leg but reports persistent swelling and pain; no fever/chills; reports that his has been taken to [facility] with plan to send her to rehab; he is agreeable to being admitted to the same rehab as his ; - Constitutional Vitals: Temp Pulse Resp BP Pulse Ox 98.6 F 79 16 97/63 97 01/16/17 12:32 01/16/17 12:32 01/16/17 12:32 01/16/17 12:32 01/16/17 12:32 General appearance: Present: cooperative, A&O X 3, answers questions appropriately - Respiratory Respiratory exam: Present: CTAB. Absent: accessory muscle use, rales, rhonchi, wheezes - Cardiovascular Cardiovascular exam: Present: RRR, +S1, +S2. Absent: diastolic murmur, gallop, rubs, systolic murmur - GI/Abdominal GI/Abdominal exam: Present: normal bowel sounds, soft, no peritoneal signs. Absent: distended, tenderness - Extremities Exam Extremities exam: Present: pedal edema, warm, radial pulses palpable and symmetrical. Absent: calf tenderness, cyanotic Additional comments: B/L pedal edema; right>left Right leg diffusely edematous and warm- improving erythema, tenderness+ - Neurological Exam Neurological exam: Present: CN II-XII intact, oriented X3, no focal deficits ( right-sided hemiparesis, facial droop, dysarthria). Absent: pronater drift, facial droop, speech deficit Internal Medicine: Result - Labs CBC & Chem 7: 01/15/17 03:16 01/15/17 03:16 - ABG Interpretation ABG results: PT/INR, D-dimer PT 10.8 Seconds (9.4-12.1) 01/13/17 21:59 Consult Discharge Plan - Plan Referrals: NONE,PCP [Primary Care Provider] - Prescriptions: Amoxicillin/Clavulanate [Augmentin] 875 mg PO BIDWM #24 tablet Doxycycline Hyclate 100 mg PO BID #24 tablet
[2017-01-16] MEDS: Furosemide 20 MG/2 ML VIAL IVP SCH ×2 (15:32→18:56)
[2017-01-16] MEDS: Famotidine 20 MG TABLET PO SCH (15:36)
[2017-01-16] MEDS: Doxycycline 100 MG in 0.9 % Sodium Chloride Mini Bag 100 ML IVPB SCH (21:31)
[2017-01-16] MEDS: Insulin DETEMIR 100 UNIT/ML X5UNITS SQ SCH (21:33)
[2017-01-17] MEDS: Piperacillin/Tazobactam 3.375 GM in D5% in Water (Mini-Bag+) 100 ML IVPB SCH ×3 (00:58→16:06)
[2017-01-17] MEDS: *HR* Heparin 5,000 UNIT/ML VIAL SQ SCH ×3 (04:53→21:53)
[2017-01-17] MEDS: *HR* OxyCODONE/APAP 5/325 TABLET PO PRN (05:17)
[2017-01-17] MEDS: Doxycycline 100 MG in 0.9 % Sodium Chloride Mini Bag 100 ML IVPB SCH ×2 (05:17→19:20)
[2017-01-17] MEDS: Furosemide 20 MG/2 ML VIAL IVP SCH ×2 (09:09→16:06)
[2017-01-17] MEDS: Famotidine 20 MG TABLET PO SCH ×2 (09:09→16:06)
[2017-01-17] MEDS: Insulin LISPRO 300 UNITS/3 ML VIAL SQ SCH ×4 (09:15→21:52)
[2017-01-17] MEDS: Insulin NPH/REG 70/30 100 UNIT/ML (x5UNIT) SQ SCH ×2 (09:22→16:44)
[2017-01-17] MEDS: *HR* OxyCODONE/APAP 10/325 TABLET PO PRN (16:38)
[2017-01-17] MEDS: Insulin DETEMIR 100 UNIT/ML X5UNITS SQ SCH (21:52)
--- NOTE | 2017-01-17 23:53 | Internal Med Progress Note ---
Date of Encounter: 01/17/17 Time of Encounter: 13:50 - Assessment and plan (1) Cellulitis of right lower extremity Current Visit: Yes Status: Acute Assessment and plan: Patient states only slight improvement. Will monitor after continuing the addition of Doxy. ID consult if no improvement. (2) Chronic renal failure Current Visit: Yes Status: Chronic Assessment and plan: Chronic; avoid nephrotoxic medications. Qualifiers: Chronic kidney disease stage: unspecified stage Qualified Code(s): N18.9 - Chronic kidney disease, unspecified - Time Spent With Patient less than 15 minutes - Subjective Interval history: cellulitic foot pain is unchanged. Erythema improved only a little after starting doxycycline. Denies fevers/chills, n/v. - Constitutional Vitals: Temp Pulse Resp BP Pulse Ox 98.6 F 88 15 123/68 93 01/17/17 21:23 01/17/17 21:23 01/17/17 21:23 01/17/17 21:23 01/17/17 21:23 General appearance: Present: cooperative, A&O X 3, answers questions appropriately - Head Head exam: Present: atraumatic, normocephalic - Eye Eye exam: Present: PERRL, conjuntiva pink, sclera anicteric Pupils: Present: PERRL - Respiratory Respiratory exam: Present: CTAB. Absent: accessory muscle use, rales, rhonchi, wheezes - Cardiovascular Cardiovascular exam: Present: RRR, +S1, +S2. Absent: diastolic murmur, gallop, rubs, systolic murmur Internal Medicine: Result - Labs CBC & Chem 7: 01/15/17 03:16 01/15/17 03:16 - ABG Interpretation ABG results: PT/INR, D-dimer PT 10.8 Seconds (9.4-12.1) 01/13/17 21:59 Consult Discharge Plan - Plan Referrals: NONE,PCP [Primary Care Provider] -
[2017-01-18] MEDS: *HR* OxyCODONE/APAP 10/325 TABLET PO PRN ×2 (00:18→21:02)
[2017-01-18] MEDS: Piperacillin/Tazobactam 3.375 GM in D5% in Water (Mini-Bag+) 100 ML IVPB SCH ×3 (00:19→16:13)
[2017-01-18] MEDS: Doxycycline 100 MG in 0.9 % Sodium Chloride Mini Bag 100 ML IVPB SCH ×2 (05:03→18:49)
[2017-01-18] MEDS: *HR* Heparin 5,000 UNIT/ML VIAL SQ SCH ×3 (05:03→21:09)
[2017-01-18] MEDS: Famotidine 20 MG TABLET PO SCH ×2 (08:21→16:13)
[2017-01-18] MEDS: Furosemide 20 MG/2 ML VIAL IVP SCH ×2 (08:29→17:50)
[2017-01-18] MEDS: Insulin LISPRO 300 UNITS/3 ML VIAL SQ SCH ×4 (08:30→21:01)
[2017-01-18] MEDS: Insulin NPH/REG 70/30 100 UNIT/ML (x5UNIT) SQ SCH ×2 (10:41→17:50)
[2017-01-18] MEDS ORDERED: predniSONE 20 MG TABLET PO ONE (15:34)
--- NOTE | 2017-01-18 15:43 | Internal Med Progress Note ---
Date of Encounter: 01/18/17 Time of Encounter: 15:41 - Assessment and plan (1) Cellulitis of right lower extremity Current Visit: Yes Status: Acute Assessment and plan: Patient does note that some erythema is being improved. However he is on Zosyn and doxycycline and there seems to be gradual improvement. Unsure, but patient may need escalation of therapy. We also need a follow-up CBC. We will need to have a follow-up CBC. We will obtain a uric acid level. Imaging case of a gouty attack, we will give him 1 dose of 40 mg prednisone. (2) Gout Current Visit: Yes Status: Suspected Assessment and plan: Plan as above. He states when he has episodes of gout it is not in his toes which usually in his ankles. He ran out of allopurinol several months ago because of insurance reasons. Also since he is having right knee effusion with pain we will aspirate today and send off for cytology. Overall, unsure if gout is involved with his current complaints Qualifiers: Gout site: foot Gout etiology: unspecified cause Chronicity: chronic Laterality: right Qualified Code(s): M1A.0710 - Idiopathic chronic gout, right ankle and foot, without tophus (tophi) (3) Chronic renal failure Current Visit: Yes Status: Chronic Assessment and plan: Renally dose medications and avoid nephrotoxic medication Qualifiers: Chronic kidney disease stage: stage 1 Qualified Code(s): N18.1 - Chronic kidney disease, stage 1 - Subjective Interval history: States that the erythema about his knee has improved. He notes as well as nursing notes, that the moore of his right leg has become more red. Feels some pain in his right knee joint as well with swelling. Patient notes that he has a history of gout and this pain feels very similar to gout - Constitutional Vitals: Temp Pulse Resp BP Pulse Ox 98.6 F 80 18 109/73 95 01/18/17 11:35 01/18/17 11:35 01/18/17 11:35 01/18/17 11:35 01/18/17 11:35 General appearance: Present: cooperative, A&O X 3, answers questions appropriately Exam: General appearance: Present: cooperative, A&O X 3, answers questions appropriately - Respiratory Respiratory exam: Present: CTAB. Absent: accessory muscle use, rales, rhonchi, wheezes - Cardiovascular Cardiovascular exam: Present: RRR, +S1, +S2. Absent: diastolic murmur, gallop, rubs, systolic murmur - GI/Abdominal GI/Abdominal exam: Present: normal bowel sounds, soft, no peritoneal signs. Absent: distended, tenderness - Extremities Exam Extremities exam: Present: normal inspection (onychomycosis, excised great toe nail), pedal edema (right leg with diffuse edema, erythema, tenderness- slowly improving), warm, radial pulses palpable and symmetrical. Absent: calf tenderness, cyanotic - Neurological Exam Neurological exam: Present: CN II-XII intact (dysarthria), oriented X3, no focal deficits (right-sided hemiparesis). Absent: pronater drift, facial droop , speech deficit - Skin Skin exam: Present: dry, intact Internal Medicine: Result - Labs CBC & Chem 7: 01/15/17 03:16 01/15/17 03:16 - ABG Interpretation ABG results: PT/INR, D-dimer PT 10.8 Seconds (9.4-12.1) 01/13/17 21:59 Consult Discharge Plan - Plan Referrals: NONE,PCP [Primary Care Provider] -
[2017-01-18 16:14] LABS: Basophils # 0.1 K/mcL (0.0-0.2); Basophils % 1.1 %; Eosinophils # 0.2 K/mcL (0.0-0.6); Eosinophils % 4.3 %; Hemoglobin 12.9 g/dL (12.9-16.9); Immature Granulocytes % 2.6 % (0-4); Lymphocytes % 20.7 %; Mean Corpuscular HGB Conc 33.9 g/dL (31.6-35.5); Mean Corpuscular Hemoglobin 29.4 pg (28.0-33.3); Mean Corpuscular Volume 86.6 fL (83.0-100.0); Mean Platelet Volume 10.6 fL (9.4-12.4); Monocytes # 0.2 K/mcL (0.0-1.3); Monocytes % 4.5 %; Neutrophils # 3.1 K/mcL (1.6-8.9); Nucleated Red Blood Cells 0.4 /100 WBC (0); Platelet Count 183 K/mcL (140-400); Red Blood Count 4.39 M/mcL (4.19-5.50); Red Cell Distribution Width 12.6 % (11.5-14.5); Segmented Neutrophils % 66.8 %
[2017-01-18 16:20] LABS: BUN/Creatinine Ratio 19 (6-26); Blood Urea Nitrogen 25 mg/dL (8-26); Calcium 9.5 mg/dL (8.6-10.8); Carbon Dioxide 29 mEq/L (19-29); Chloride 102 mEq/L (98-109); Glucose 201 mg/dL (70-99); Osmolality,Calculated 302 (280-300); Potassium 3.9 mEq/L (3.5-4.5); Sodium 141 mEq/L (136-145); eGFR For African Americans > 60 (> 60); eGFR For Non-African Americans 52 (> 60)
[2017-01-18] MEDS: Insulin DETEMIR 100 UNIT/ML X5UNITS SQ SCH (21:26)
[2017-01-19] MEDS: Piperacillin/Tazobactam 3.375 GM in D5% in Water (Mini-Bag+) 100 ML IVPB SCH ×3 (00:18→16:13)
[2017-01-19] MEDS: *HR* OxyCODONE/APAP 10/325 TABLET PO PRN ×2 (04:30→16:14)
[2017-01-19] MEDS: *HR* Heparin 5,000 UNIT/ML VIAL SQ SCH ×2 (05:59→16:09)
[2017-01-19 06:07] LABS: Basophils % 0.6 %; Hematocrit 37.5 % (37.5-50.1); Hemoglobin 13.3 g/dL (12.9-16.9); Immature Granulocytes % 0.7 % (0-4); Lymphocytes # 0.9 K/mcL (0.6-4.6); Lymphocytes % 12.2 %; Mean Corpuscular HGB Conc 35.5 g/dL (31.6-35.5); Mean Corpuscular Hemoglobin 30.9 pg (28.0-33.3); Monocytes # 0.1 K/mcL (0.0-1.3); Monocytes % 1.3 %; Neutrophils # 5.9 K/mcL (1.6-8.9); Platelet Count 267 K/mcL (140-400); Red Blood Count 4.31 M/mcL (4.19-5.50); Red Cell Distribution Width 12.5 % (11.5-14.5); Segmented Neutrophils % 85.2 %
[2017-01-19] MEDS: Doxycycline 100 MG in 0.9 % Sodium Chloride Mini Bag 100 ML IVPB SCH ×2 (06:08→18:36)
[2017-01-19 06:17] LABS: BUN/Creatinine Ratio 21 (6-26); Blood Urea Nitrogen 24 mg/dL (8-26); Calcium 9.3 mg/dL (8.6-10.8); Carbon Dioxide 26 mEq/L (19-29); Chloride 101 mEq/L (98-109); Glucose 153 mg/dL (70-99); Osmolality,Calculated 297 (280-300); Sodium 140 mEq/L (136-145); eGFR For African Americans > 60 (> 60); eGFR For Non-African Americans > 60 (> 60)
[2017-01-19] MEDS: Insulin NPH/REG 70/30 100 UNIT/ML (x5UNIT) SQ SCH ×2 (08:33→17:28)
[2017-01-19] MEDS: Furosemide 20 MG/2 ML VIAL IVP SCH ×2 (08:33→16:14)
[2017-01-19] MEDS: Famotidine 20 MG TABLET PO SCH ×2 (08:33→16:14)
[2017-01-19] MEDS: Insulin LISPRO 300 UNITS/3 ML VIAL SQ SCH ×3 (08:33→17:28)
--- NOTE | 2017-01-19 13:49 | Infectious Disease Consult ---
Date of Encounter: 01/19/17 Time of Encounter: 13:38 Assessment and Plan (1) Cellulitis of right lower extremity Status: Acute Assessment and plan: Location: RLE. Non-purulent. Causative organism unclear. Etiology unclear: right knee abrasion vs. right great toe trauma vs. other. Clinically improved per the patient, although it seems improvement has taken longer than we would expect. The patient only received 2 doses of IV Vanc prior to being switched to doxycyline. It is likely that the Vancomycin never received therapeutic blood levels and doxycycline is bacteriostatic which would also explain the delayed response to treatment. X-ray of the RLE are negative for infectious etiology or fracture. Doppler study is negative. ABIs were normal. Blood cultures drawn 01/13/17 are negative x 2 sets. Check ESR and CRP. Consider CT or MRI of the RLE to evaluate for abscess. Continue doxycycline IV for now, but take into consideration that the patient's infection will likely continue to be slow to respond to treatment. Continue Zosyn 3.375 grams IV Q8H for now, but can likely discontinue soon. Duration of treatment depends on the clinical picture, but likely a total of 14 days. We will likely be able to transition the patient to orals when ready for discharge (doxy and cipro). Monitor renal function and for drug toxicity and dose-adjust antibiotics. ID service will be unavailable after today until Monday. (2) Lactic acidosis Status: Resolved Assessment and plan: Likely secondary to infectious process. Resolved. (3) Acute kidney injury Status: Resolved Assessment and plan: Likely secondary to infectious process. Resolved. (4) Diabetes mellitus with hyperglycemia Status: Acute Assessment and plan: Uncontrolled. HgbA1C 9.8%. Recommend aggressive glucose monitoring and control to promote healing and prevent re-infection. Qualifiers: Diabetes mellitus type: type 2 Diabetes mellitus senior living insulin use: with senior living use Qualified Code(s): E11.65 - Type 2 diabetes mellitus with hyperglycemia; Z79.4 - senior care (current) use of insulin (5) COPD (chronic obstructive pulmonary disease) Status: Chronic Qualifiers: COPD type: unspecified COPD Qualified Code(s): J44.9 - Chronic obstructive pulmonary disease, unspecified (6) History of CVA (cerebrovascular accident) Status: Chronic (7) Gout Status: Chronic Assessment and plan: Patient has a history of gout, but clinically does not appear to be a gout attack at this time. Uric acid normal. Qualifiers: Gout site: foot Gout etiology: unspecified cause Chronicity: chronic Laterality: right Qualified Code(s): M1A.0710 - Idiopathic chronic gout, right ankle and foot, without tophus (tophi) Infectious Disease HPI - Data of Consult Patient: new to practice Consult date: 01/19/17 Requesting Physician: Phill West MD Primary Care Provider: PCP NONE - Consult Narrative Reason for consult: RLE cellulitis History of present illness: Mr. Correa is a 71 year old male with a past medical history of COPD, DM, HLD, Depression, and CVA. The patient was admitted to the hospital 01/13/17 for cellulitis of the RLE. We are consulted January 19 for further recommendations regarding RLE cellulitis. Briefly, the patient is a 71 year old male with a past medical history as stated below. The patient presented to the ER with a 1 day history of pain, swelling, and erythema of the RLE. He reports that his toenail got caught on his dog's tooth a few days prior to the onset of symptoms and his toenail came off. He also reports that he hit his knee on a door frame and scraped his knee, but otherwise denies trauma. Upon presentation to the ER, the patient was afebrile and hemodynamically stable. WBC was normal. He had lactic acidosis and acute kidney injury. Venous doppler study was negative. Blood cultures were obtained x 2 sets and are negative. He was started on empiric IV antibiotics and was admitted to the hospital for further evaluation. Since admission, the patient's WBC has remained normal. He has been afebrile. His RLE has been slow to improve with IV antibiotics, but the patient states that it does appear to be getting better. Currently, he is on IV Zosyn and Doxycycline. We've been asked to evaluate and make further recommendations. During my exam today, the patient states that overall he feels okay. He reports that his leg became red, swollen, and painful on the day of admission. Denies trauma except as mentioned above. Denies fevers, chills, or rigors. Denies chest pain, shortness of breath, or cough. Denies nausea, vomiting, diarrhea, constipation, or abdominal pain. States his appetite has been good and he denies urinary complaints. According to the patient, there was pain, redness, and swelling that extended from the toes proximally to the right thigh. He reports the pain has improved and is painful only from the mid-calf down. He also reports the swelling and redness have improved as well. He denies any oral thrush or other skin rashes. He states his blood sugars have been okay at home. The patient is bed/wheelchair-bound due to a previous CVA. He lives at home with his who is also chronically ill. He states they have no family to help take care of them. CC: Phill West MD Past Med Surg Social Fam HX - Past Medical History Attestation: Yes The following information was validated with the patient. Source: patient, old records reviewed, nursing notes reviewed Medical history: COPD, CVA, diabetes, hyperlipidemia Psychiatric history: depression - Past Surgical History Surgical History: cholecystectomy, herniorrhaphy, other - Social History Smoking Status: Never smoker Smokeless Tobacco Status: No Alcohol use: none Drug use: none Occupational status: retired Current living situation: Home, With Family Activity Level: Wheelchair bound Recent Out of Country Travel Within the Last 8 Weeks: No Exposure or Possible Exposure to Illness During Travel: No - Family History Mother Living Status: Hx Family Cancer: Yes (lung cANCER) Father Hx Family Cancer: Yes (Lung) Infectious Disease-CN:Meds Insulin Lispro Protamin/Lispro [Humalog Mix 75-25 Vial] 35 unit SQ BID 06/20/16 [History] Metformin HCl [Glucophage] 1,000 mg PO BID 06/20/16 [History] Tramadol HCl [Ultram] 50 mg PO Q4-6H PRN 06/20/16 [History] Albuterol Sulfate [Albuterol Inhaler] 1 puff IH PRN PRN 07/26/16 [History] Potassium Chloride [K-Tab ER] 20 meq PO DAILY 07/26/16 [History] Rosuvastatin Calcium 40 mg PO DAILY 07/26/16 [History] Lisinopril [Zestril] 2.5 mg PO DAILY #15 tablet 07/29/16 [Rx] Albuterol Neb [Proventil Neb] 2.5 mg IH Q4HR PRN 01/14/17 [History] Beclomethasone Diprop 40mcg [Qvar 40 mcg] 2 puff IH BID 01/14/17 [History] Collagenase Oint [Santyl] 1 appl TP DAILY 01/14/17 [History] Pioglitazone [Actos] 45 mg PO DAILY 01/14/17 [History] Rabeprazole Sodium [Aciphex] 20 mg PO DAILY 01/14/17 [History] Amoxicillin/Clavulanate [Augmentin] 875 mg PO BIDWM #24 tablet 01/15/17 [Rx] Doxycycline Hyclate 100 mg PO BID #24 tablet 01/15/17 [Rx] 3 Allergy/AdvReac Type Severity Reaction Status Date / Time loratadine [From Claritin] AdvReac Gastrointestinal Verified 01/13/17 21:24 Upset All systems: reviewed and no additional remarkable complaints except as stated Exam - Constitutional Vitals: Temp Pulse Resp BP Pulse Ox 97.8 F 101 18 108/70 93 01/19/17 11:34 01/19/17 11:34 01/19/17 11:34 01/19/17 11:34 01/19/17 11:34 General appearance: average body habitus, no acute distress - Head Head exam: Present: atraumatic, normal inspection, normocephalic - Eye Eye exam: Present: EOMI, normal appearance, PERRL Pupils: Present: normal accommodation - ENT ENT exam: Present: mucous membranes moist - Neck Neck exam: Present: normal inspection - Respiratory Respiratory exam: Present: CTAB. Absent: rales, respiratory distress, rhonchi, wheezes - Cardiovascular Cardiovascular exam: Present: RRR, +S1, +S2 - GI/Abdominal GI/Abdominal exam: Present: normal bowel sounds, soft. Absent: distended, tenderness - Extremities Exam Extremities exam: Present: pedal edema (2+ RLE), tenderness (Mid-calf distally RLE). Absent: joint swelling - Expanded Lower Extremity Exam 1 - Mild erythema, non-tender, minimal swelling. 2 - Superficial abrasions, scabbed, no drainage noted. 3 - Angry, beefy red, warm to touch. No open lesions. Areas of dark purple noted to the anterior aspect and over the arch of the foot. - Neurological Exam Neurological exam: Present: alert, oriented X3. Absent: no focal deficits (RUE and RLE weakness/contracture noted.) - Psychiatric Psychiatric exam: Present: normal affect, normal mood - Skin Skin exam: Present: dry, intact, normal color, warm Infectious Disease CN: Results - Labs CBC & Chem 7: 01/19/17 05:56 01/19/17 05:56 Cultures: Cultures 01/13/17 22:06 Blood Culture - Final Peripheral Venipuncture No growth. 01/13/17 21:59 Blood Culture - Final Peripheral Venipuncture No growth. 01/14/17 03:48 Wound Culture - Final Right Foot No growth. Consult Discharge Plan - Plan Referrals: NONE,PCP [Primary Care Provider] -
--- NOTE | 2017-01-19 17:57 | Discharge Summary ---
Date of Encounter: 01/19/17 Time of Encounter: 17:55 - Discharge Diagnosis (1) Cellulitis of right lower extremity Priority: Primary Status: Acute (2) Gout Priority: Secondary Status: Chronic Qualifiers: Gout site: foot Gout etiology: unspecified cause Chronicity: chronic Laterality: right Qualified Code(s): M1A.0710 - Idiopathic chronic gout, right ankle and foot, without tophus (tophi) (3) Chronic renal failure Priority: Secondary Status: Chronic Qualifiers: Chronic kidney disease stage: stage 1 Qualified Code(s): N18.1 - Chronic kidney disease, stage 1 - Discharge Medications Prescriptions: Oxycodone HCl/Acetaminophen [Percocet 5-325 mg Tablet] 1 each PO Q8HR PRN #15 tablet PRN Reason: Pain Cephalexin [Keflex] 750 mg PO BID #24 capsule Doxycycline 100 mg PO BID #24 capsule Home Medications: Insulin Lispro Protamin/Lispro [Humalog Mix 75-25 Vial] 35 unit SQ BID 06/20/16 [History] Metformin HCl [Glucophage] 1,000 mg PO BID 06/20/16 [History] Tramadol HCl [Ultram] 50 mg PO Q4-6H PRN 06/20/16 [History] Albuterol Sulfate [Albuterol Inhaler] 1 puff IH PRN PRN 07/26/16 [History] Potassium Chloride [K-Tab ER] 20 meq PO DAILY 07/26/16 [History] Rosuvastatin Calcium 40 mg PO DAILY 07/26/16 [History] Lisinopril [Zestril] 2.5 mg PO DAILY #15 tablet 07/29/16 [Rx] Albuterol Neb [Proventil Neb] 2.5 mg IH Q4HR PRN 01/14/17 [History] Beclomethasone Diprop 40mcg [QVAR 40 mcg] 2 puff IH BID 01/14/17 [History] Collagenase Oint [Santyl] 1 appl TP DAILY 01/14/17 [History] Pioglitazone [Actos] 45 mg PO DAILY 01/14/17 [History] Rabeprazole Sodium [Aciphex] 20 mg PO DAILY 01/14/17 [History] Cephalexin [Keflex] 750 mg PO BID #24 capsule 01/19/17 [Rx] Doxycycline 100 mg PO BID #24 capsule 01/19/17 [Rx] Oxycodone HCl/Acetaminophen [Percocet 5-325 mg Tablet] 1 each PO Q8HR PRN #15 tablet 01/19/17 [Rx] Allergies/Adverse Reactions: 3 Allergy/AdvReac Type Severity Reaction Status Date / Time loratadine [From Claritin] AdvReac Gastrointestinal Verified 01/13/17 21:24 Upset Date of admission: 01/16/17 12:55 Primary care physician: PCP NONE Consults: 01/18/17 15:35 Consult to Infectious Diseases [CONS] Routine Consulting Provider: Infect[facility] [place] Reason for Consult: Right lower extremity cellulitis Call Completed: Yes Discharging clinician: Phill West - Patient Status Disposition: Transfer SNF Condition: Fair Functional capacity at discharge: wheelchair bound Overall status at discharge: patient is progressing back to baseline - Discharge Instructions Follow Up With: NONE,PCP [Primary Care Provider] - - Diet and Activity Activity: as per physical therapy Diet: advance to your usual diet Interval History: Mr. Correa is a 71 year old wheel chair bound male with a PMH of COPD, CVA with residual left arm contracture, DM, hyperlipidemia, and obesity presented c/ o right leg swelling and pain since this morning. He reports right leg pain is constant, 8/10 severity, and redness and swelling are gradually getting worse. He reports the toenail of the right great toe was pulled off earlier today while playing with his dog. He reports blood glucose usually between high 200s to 300 at home. 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 Blood cultures were collected. In the ED, U/S was negative for DVT, Lactic acid was 2.7, and paint was started on empiric Vanc and Zosyn. Hospital course: He remained afebrile and did not have leukocytosis. An x-ray of right lower extremity was negative for infectious process. Patient thought this may due to Gout, a uric acid level was checked and within normal limits. Vancomycin was discontinued and he was then started on doxycycline. Doxycycline seemed to improve infection. He was stable and discharged home with Doxycycline and Keflex for 12 days for a total of 14 days of treatment. He was instructed to follow-up with his primary care physician at next available appointment. - Time Spent with Patient Total time spent providing and/or coordinating discharge services: - Constitutional Vitals: Temp Pulse Resp BP Pulse Ox 98.6 F 89 18 142/87 95 01/19/17 15:11 01/19/17 15:11 01/19/17 15:11 01/19/17 15:11 01/19/17 15:11 General appearance: Present: cooperative, A&O X 3, answers questions appropriately - Respiratory Respiratory exam: Present: CTAB. Absent: accessory muscle use, rales, rhonchi, wheezes - Cardiovascular Cardiovascular exam: Present: RRR, +S1, +S2. Absent: diastolic murmur, gallop, rubs, systolic murmur - Extremities Exam Additional comments: right lower extremity edematous and front moore is tender and erythematous. Overall improved from my physical exam yesterday.
[2017-01-19] MEDS ORDERED: 0.9 % Sodium Chloride Mini Bag 100 ML ONE (18:31)
--- NOTE | 2017-01-19 19:19 | Physician Discharge Referral ---
ExtendedCare Referral Info Provider in Charge after Transfer: PCP Institutional Level of Care: Skilled - Diagnosis (1) Cellulitis of right lower extremity Priority: Primary Status: Acute (2) Gout Priority: Secondary Status: Chronic (3) Chronic renal failure Priority: Secondary Status: Chronic (4) Debility Priority: Secondary Status: Acute - Transfer Medications Prescriptions: Oxycodone HCl/Acetaminophen [Percocet 5-325 mg Tablet] 1 each PO Q8HR PRN #15 tablet PRN Reason: Pain Cephalexin [Keflex] 750 mg PO BID #24 capsule Doxycycline 100 mg PO BID #24 capsule Home Medications: Insulin Lispro Protamin/Lispro [Humalog Mix 75-25 Vial] 35 unit SQ BID 06/20/16 [History] Metformin HCl [Glucophage] 1,000 mg PO BID 06/20/16 [History] Tramadol HCl [Ultram] 50 mg PO Q4-6H PRN 06/20/16 [History] Albuterol Sulfate [Albuterol Inhaler] 1 puff IH PRN PRN 07/26/16 [History] Potassium Chloride [K-Tab ER] 20 meq PO DAILY 07/26/16 [History] Rosuvastatin Calcium 40 mg PO DAILY 07/26/16 [History] Lisinopril [Zestril] 2.5 mg PO DAILY #15 tablet 07/29/16 [Rx] Albuterol Neb [Proventil Neb] 2.5 mg IH Q4HR PRN 01/14/17 [History] Beclomethasone Diprop 40mcg [QVAR 40 mcg] 2 puff IH BID 01/14/17 [History] Collagenase Oint [Santyl] 1 appl TP DAILY 01/14/17 [History] Pioglitazone [Actos] 45 mg PO DAILY 01/14/17 [History] Rabeprazole Sodium [Aciphex] 20 mg PO DAILY 01/14/17 [History] Cephalexin [Keflex] 750 mg PO BID #24 capsule 01/19/17 [Rx] Doxycycline 100 mg PO BID #24 capsule 01/19/17 [Rx] Oxycodone HCl/Acetaminophen [Percocet 5-325 mg Tablet] 1 each PO Q8HR PRN #15 tablet 01/19/17 [Rx] Allergies/Adverse Reactions: 3 Allergy/AdvReac Type Severity Reaction Status Date / Time loratadine [From Claritin] AdvReac Gastrointestinal Verified 01/13/17 21:24 Upset - Respiratory Orders None Smoking Cessation: Smoking cessation has been advised. For more information, call the [place] Tobacco Quit Line at 5-966-TKDF-NOW. - Mobility Orders Chair - Rehabiliation Orders Rehab Potential: Fair Rehab Orders: Evaluation for Physical Therapy, Evaluation for Occupational Therapy - Treatments Skin tear care topically daily PRN per policy - Diet Orders Cardiac CERTIFICATION: I certify that the transfer of the above named patient to an Extended Care Facility is necessary for the continuing treatment of the diagnosis listed. The above information is true and accurate reflection of patient's current condition. Confidential - Redisclosure prohibited without a patient's written consent.
[2017-01-19 19:46] VITALS: BP 121/83
== END 2017-01-19 20:50 | DRG 603 ==
LOC: EMEROO 21:13 → 3ANU 21:13 → SUATTDRO 22:47 → 3ANU 23:13 → SUATTDRO 01-16 12:55
PROVIDERS: ADMIT Internal Medicine; ATTEND Student in an Organized Health Care Education/Training Program